=== PATIENT | female | born 1945 | race Caucasian/White ===

== ENCOUNTER 2017-06-24 14:32 | Inpatient (IN) | payer MEDICARE ==
[~2017-06-24] VITALS: Ht 157.5 cm; Wt 76.5 kg
[2017-06-24] VITALS (7 sets, daily range): BP systolic 169–189; BP diastolic 73–84; PULSE 80–83; RESP 12–14; TEMP 98.1–98.9; O2SAT 97–100
[2017-06-24] MEDS ORDERED: PROPOFOL 1000 MG/100 ML INJ 100 ML IV PRN (16:02)
[2017-06-24] MEDS ORDERED: POTASSIUM CHLORIDE 25 MEQ EFFERVESCENT TAB PO PRN (16:15)
[2017-06-24] MEDS ORDERED: SODIUM PHOSPHATE INJ 30 MMOL in SODIUM CHLOR 0.9% 250 ML INJ 240 ML IV PRN (16:15)
[2017-06-24] MEDS ORDERED: RESP: ALBUTEROL 2.5 MG/IPRATROPIUM 0.5 MG NEB (PRN) INH (16:15)
[2017-06-24] MEDS ORDERED: POTASSIUM PHOSPHATE INJ 30 MMOL in SODIUM CHLOR 0.9% 250 ML INJ 250 ML IV PRN (16:15)
[2017-06-24] MEDS ORDERED: POTASSIUM CHLOR 20 MEQ PREMIX 100 ML IV PRN ×2 (16:15)
[2017-06-24] MEDS ORDERED: MISCELLANEOUS NURSING INFORMATION XX SCH (16:15)
[2017-06-24] MEDS ORDERED: POTASSIUM CHLOR 40 MEQ PREMIX 100 ML IV PRN (16:15)
[2017-06-24] MEDS ORDERED: MAGNESIUM OXIDE 400 MG TAB PO PRN (16:15)
[2017-06-24] MEDS: RESP: ALBUTEROL 2.5 MG/IPRATROPIUM 0.5 MG NEB (SCH) NEB ×2 (16:15→20:39)
[2017-06-24] MEDS ORDERED: CHLORHEXIDINE GLUCONATE 2 % 1 PACK (2 CLOTHS) TOP PRN (16:15)
[2017-06-24] MEDS ORDERED: POTASSIUM PHOSPHATE MONOBASIC 500 MG TAB PO PRN (16:15)
[2017-06-24] MEDS ORDERED: MAGNESIUM SULFATE INJ 4 GM in SODIUM CHLORIDE 0.9% INJ 92 ML IV PRN (16:15)
[2017-06-24] MEDS ORDERED: POTASSIUM PHOSPHATE MONOBASIC 500 MG TAB PO/TUBE PRN (16:15)
[2017-06-24] MEDS ORDERED: MAGNESIUM SULFATE INJ 2 GM in SODIUM CHLORIDE 0.9% INJ 96 ML IV PRN (16:15)
[2017-06-24] MEDS ORDERED: SODIUM CHLORIDE 0.9% FLUSH 10 ML FLUSH IV FLUSH PRN (16:15)
[2017-06-24] MEDS ORDERED: GLUCAGON 1 MG/ML VIAL OTHER PRN (16:45)
[2017-06-24] MEDS ORDERED: DEXTROSE 50% IN WATER 50 ML VIAL(D50) IV PUSH PRN (16:45)
[2017-06-24] MEDS: SODIUM CHLOR 0.9% 1000 ML INJ 1,000 ML IV SCH (17:00)
--- NOTE | 2017-06-24 17:19 | RADRPT ---
EXAM DATE/TIME: 06/24/2017 16:35 [facility] COMPARISON: No previous studies available for comparison. EXTERNAL COMPARISON : INDICATIONS : E-T tube placement on a patient transfered here from another out [facility]. MEDICAL HISTORY : UNKNOWN SURGICAL HISTORY : UNKNOWN ENCOUNTER: Initial ACUITY: 1 day PAIN SCORE: Non-responsive. LOCATION: Bilateral chest FINDINGS: Mild infiltrate and probable small effusion seen at the left lung base. Right lung reasonably clear. No pneumothorax. Endotracheal tube tip is approximately 3.8 cm above the mahnaz. There is a nasogastric tube coursing into the stomach. The nasogastric tube deviates considerably to the left in the lower chest, nonspeci fic but a hiatal hernia would be in the differential. Heart size upper limits of normal. CONCLUSION: 1. Consolidation and small effusion at the left lung base. 2. Appropriate position of the endotracheal tube. 3. Nasogastric tube courses into the stomach. It deviates to the left in the lower chest. Please see above. Demarcus Thurston MD on June 24, 2017 at 17:16 Board Certified Radiologist. This report was verified electronically.
[2017-06-24] MEDS: INSULIN ASPART SUPPLEMENTAL SCALE SQ SCH (17:28)
--- NOTE | 2017-06-24 17:34 | HHI.HP ---
HPI Service Critical Care Medicine Primary Care Physician Unknown Admission Diagnosis Diagnosis: Chief Complaint: Nausea vomiting Travel History International Travel<30 Days: No Contact w/Intl Traveler <30 Da: No Traveled to Known Affected Are: No History of Present Illness 71-year-old female with a past medical history significant for COPD, GERD, gastric ulcer, nephrolithiasis who presented to [facility] on 2016 with severe epigastric pain nausea vomiting and coffee-ground emesis which started a day prior to her presentation. Patient continued to have significant nausea vomiting following admission. She was evaluated by GI. CT chest was negative for PE. CT abdomen pelvis revealed large hiatal hernia with hyperdense mass in the left kidney measuring 2.5 cm at the mid pole, diverticulosis without evidence of diverticulitis, umbilical hernia, normal- appearing liver spleen and gallbladder. Patient was evaluated by cardiology and GI. She had a 2-D echo which was reported as normal LV systolic function with some diastolic dysfunction. Patient underwent EGD which per discussion with critical care physician at [facility] revealed stomach full of food with gastritis and suspected gastric outlet obstruction. Patient was intubated electively during endoscopy. Since then she has been kept sedated, orally intubated on mechanical ventilation in the ICU. Her UA sent on admission at the outside hospital revealed UTI and she is growing Klebsiella as reported on her urine cultures. She was started on Levaquin for the UTI. Patient reportedly was doing okay on C Pap trials this morning. She was seen by the local surgeon at [facility] however he felt the patient needed to be transferred to [facility] and discussed the case with Dr. Wyatt aleman on 06/23 and patient was subsequently accepted for admission to critical care medicine service for further surgical evaluation following her arrival. I evaluated the patient immediately on arrival to the ICU on 06/24 around 4 PM. At that time she was sedated with propofol, orally intubated on mechanical ventilation. History was obtained by reviewing records and discussion with critical care physician at [facility]. Review of Systems ROS Limitations: Intubated Past Family Social History Allergies: Coded Allergies: Penicillins (Unverified Allergy, Unknown, 06/24/17) aspirin (Unverified Allergy, Unknown, 06/24/17) Past Medical History Gastroesophageal reflux disease, rectal cancer in 2004, gastric ulcer, hypertension, hyperlipidemia, depression, COPD, nephrolithiasis. Last colonoscopy in 2011 which revealed ischemic colitis. Past Surgical History To be clarified Reported Medications Medications at home: WelChol, [place], Prilosec, Paxil, Ambien, Apresoline, by systolic, Valsartan/HCTZ Active Ordered Medications Propofol, amlodipine, hydralazine 25 mg twice a day, Protonix 20 mg IV twice a day, Zofran when necessary, morphine, Ativan when necessary, normal saline 125 cc per hour Family History Noncontributory at this time Social History No history of smoking or alcohol abuse any other drug abuse. Physical Exam Vital Signs Vital Signs Date Time Temp Pulse Resp B/P (MAP) Pulse Ox O2 Delivery O2 Flow Rate FiO2 06/24/17 15:53 97 50 Physical Exam HEENT/ Neuro: Sedated, orally intubated, Pallor present, no icterus, tongue/ mucosa moist Neck: No JVD Chest/Pulm: on mech vent, good air entry bilaterally, no wheezing or crackles CVS: S1-S2 regular, no murmur GI/abdomen: soft, nontender, bowel sounds sluggish. Ventral hernia noted in epigastric region. No organomegaly appreciated. Extremities: warm bilaterally, no edema Laboratory All labs reviewed from outside hospital. 06/21 WBC 10.4, hemoglobin 13.2, hematocrit 40.1, platelets 351. Sodium 139, potassium 3.8, chloride 96, bicarbonate 27, BUN 21, creatinine 0.86, glucose 130 06/24: WBC 8.7, hemoglobin 8.6, hematocrit 26.8, platelets 216. Sodium 140, potassium 3.6, chloride 107, bicarbonate 23, BUN 11, creatinine 0.45, glucose 97 , phosphorus 3.2, magnesium 1.9 06/22: Urine culture growing Klebsiella Imaging Reviewed results of imaging studies from outside hospital: CT chest negative for PE, large hiatal hernia CT abdomen pelvis: Hiatal hernia, diverticulosis, left renal mass Abdominal ultrasound: Left renal cyst Caprini VTE Risk Assessment Caprini VTE Risk Assessment: Mod/High Risk (score >= 2) VTE Pharm Contraindication: Hemorrhage Caprini Risk Assessment Model Point Value = 1 Point Value = 2 Point Value = 3 Point Value = 5 Age 41-60 Minor surgery BMI > 25 kg/m2 Swollen legs Varicose veins or History of unexplained or recurrent spontaneous Oral contraceptives or hormone replacement Sepsis (< 1 month) Serious lung disease, including pneumonia (< 1 month) Abnormal pulmonary function Acute myocardial infarction Congestive heart failure (< 1 month) History of inflammatory bowel disease Medical patient at bed rest Age 61-74 Arthroscopic surgery Major open surgery (> 45 min) Laparoscopic surgery (> 45 min) Malignancy Confined to bed (> 72 hours) Immobilizing plaster cast Central venous access Age >= 75 History of VTE Family history of VTE Factor V Leiden Prothrombin [id number] Lupus anticoagulant Anticardiolipin antibodies Elevated serum homocysteine Heparin-induced thrombocytopenia Other congenital or acquired thrombophilia Stroke (< 1 month) Elective arthroplasty Hip, pelvis, or leg fracture Acute spinal cord injury (< 1 month) Prophylaxis Regimen Total Risk Factor Score Risk Level Prophylaxis Regimen 0-1 Low Early ambulation 2 Moderate Order ONE of the following: *Sequential Compression Device (SCD) *Heparin 5000 units SQ BID 3-4 Higher Order ONE of the following medications: *Heparin 5000 units SQ TID *Enoxaparin/Lovenox 40 mg SQ daily (WT < 150 kg, CrCl > 30 mL/min) *Enoxaparin/Lovenox 30 mg SQ daily (WT < 150 kg, CrCl > 10-29 mL/min) *Enoxaparin/Lovenox 30 mg SQ BID (WT < 150 kg, CrCl > 30 mL/min) AND/OR *Sequential Compression Device (SCD) 5 or more Highest Order ONE of the following medications: *Heparin 5000 units SQ TID (Preferred with Epidurals) *Enoxaparin/Lovenox 40 mg SQ daily (WT < 150 kg, CrCl > 30 mL/min) *Enoxaparin/Lovenox 30 mg SQ daily (WT < 150 kg, CrCl > 10-29 mL/min) *Enoxaparin/Lovenox 30 mg SQ BID (WT < 150 kg, CrCl > 30 mL/min) AND *Sequential Compression Device (SCD) Assessment and Plan Assessment and Plan 71-year-old female with: Hematemesis Suspected gastric outlet obstruction Anemia COPD GERD Morbid obesity Hypertension Plan: Neuro: Sedation with propofol, fentanyl when necessary. Daily sedation vacation. Cardiovascular: IV hydration, watch for hypotension. Labetalol when necessary for systolic blood pressure greater than 160 mmHg, add lopressor 2.5 mg IV every 6 hourly while NPO as patient is on a beta scott at home. 2-D echo report from outside hospital states normal LV systolic function with minimal diastolic dysfunction. Pulmonary: Continue bronchodilators, vent bundle, mechanical ventilation. We will initiate C Pap trials in a.m. to decide extubation. GI/liver: Continue NG suction, nothing by mouth currently. General surgery and GI consulted. Discussed the case with Dr. Carpio including revieing imaging studies from [facility]. He recommends getting upper GI series and GI evaluation with endoscopy for further evaluation to decide management. Renal/: IV hydration, strict intake output, monitor and replete electrolytes, follow BUN/creatinine. Left renal cyst on renal ultrasound from outside hospital noted. ID: Continue Levaquin for Klebsiella UTI noted from outside hospital. Repeat UA and urine cultures. Patient has a Tellez catheter in place from outside hospital. Endocrine: SSI for glycemic control as needed. Heme: Follow CBC. Minimize lab draws as patient is a [employer]. Prophylaxis: On Protonix twice a day which will be continued. SCDs. No heparin or Lovenox in view of presentation with hematemesis till cleared by GI and general surgery. Condition critical. Transferred on critical care excluding procedures 70 minutes Urbano Boss MD Jun 24, 2017 17:34
[2017-06-24] MEDS ORDERED: MIDAZOLAM 100 MG/100 ML INJ 100 ML IV PRN (17:35)
[2017-06-24] MEDS ORDERED: MIDAZOLAM HCL 2 MG/2 ML VIAL IV PUSH ONE (17:45)
[2017-06-24] MEDS ORDERED: MIDAZOLAM HCL 5 MG/ML VIAL (1 ML) ONE (17:46)
[2017-06-24] MEDS: LABETALOL HCL 100 MG/20 ML VIAL IV PUSH PRN (18:00)
[2017-06-24 18:48] LABS: BACTERIA, URINE RARE /hpf; BLOOD, URINE MOD (NEG); GLUCOSE,URINE NEG (NEG); KETONE, URINE NEG (NEG); MUCUS URINE FEW /lpf (OCC); NITRITE,URINE NEG (NEG); PH, URINE 5.5 (5.0-8.5); SQUAMOUS EPITHELIAL CELL URINE 1 /hpf (0-5); URINE COLOR YELLOW (YELLW/STRAW)
--- NOTE | 2017-06-24 18:55 | MB ---
cc: ROXANNA GONZALES DATE OF CONSULTATION 06/24/[address] Karyn MD REASON FOR CONSULTATION Large hiatal hernia. HISTORY OF PRESENT ILLNESS The patient is a 71-year-old female with a past medical history of COPD and multiple previous malignancies including rectal cancer who presented to outside facility with chest pain. This was the [facility] on 06/21/2017 and she was found to have a hiatal hernia and some coffee-ground emesis concerning for upper GI bleeding. The patient underwent a workup and during this process found to have a large hiatal hernia and upper endoscopy was found to be difficult due to some tortuosity of the hernia. An NG tube was able to be placed and there was no ischemia noted. However, there was some gastritis. The patient at this point in time was apparently evaluated by surgery according to report and felt that she needed a tertiary center for repair of large gastric volvulus and possible obstruction. So she was transferred to this facility. Also the patient underwent intubation for "airway protection" due to the patient's concern for aspiration risk due to possibility of gastric outlet obstruction. The patient arrived in stable condition, sedated on the ventilator in the intensive care unit. General surgery was asked to see the patient and Dr. Koo and Dr. Nick accepted the patient to consider possible surgery. The history is obtained from the chart as the patient is intubated and sedated. REVIEW OF SYSTEMS The patient intubated unable to obtain. PAST MEDICAL HISTORY 1. Gastroesophageal reflux disease. 2. Rectal cancer. 3. Gastric ulcers. 4. Hypertension. 5. Hyperlipidemia. 6. Depression. 7. Chronic obstructive pulmonary disease. 8. Nephrolithiasis. MEDICATIONS Home medications: 1. Welchol. 2. [place]. 3. Prilosec. 4. Paxil. 5. Ambien. FAMILY HISTORY Noncontributory. SOCIAL HISTORY No history of smoking, tobacco use per the chart. PHYSICAL EXAMINATION VITAL SIGNS: Within normal limits. Normotensive. Heart rate within normal limits. Saturation 99% on the ventilator. GENERAL: The patient is intubated and sedated. GCS of 5 on the ventilator. HEENT: Head is normocephalic, atraumatic. Pupils round and reactive. LUNGS: Breath sounds present bilaterally. CARDIOVASCULAR: Heart is regular rate and rhythm. ABDOMEN: Soft, nondistended, nontender to palpation. No peritonitis or rebound tenderness. EXTREMITIES: Mild trace edema. IMAGING Outside imaging was reviewed. A CT the chest shows large hiatal hernia with no free fluid or free air in the chest or abdomen. ASSESSMENT/PLAN The patient is a 71-year-old female with large hiatal hernia, possible gastritis with history of possible coffee ground emesis. I feel the patient is unlikely to have any acute volvulus or ischemia at this time but might have worsening of her chronic or subacute hiatal hernia. I do agree with continued workup including a GI consultation and upper GI series to further evaluate the patient's hiatal hernia. I will discuss the case with Dr. Sandoval yang and hiatal hernia repair and he will evaluate the patient in the next 24 hours and discuss further options at that time. Thank you very much for this consultation. We will follow along with the patient. Roxanna Gonzales MD AWSonja/KK /6:21 PM /6:39 PM [email or web address]
[2017-06-24] MEDS: PANTOPRAZOLE SODIUM 40 MG VIAL IV SCH (20:51)
[2017-06-24] MEDS: METOPROLOL TARTRATE 5 MG/5 ML VIAL IV PUSH SCH (20:51)
[2017-06-24] MEDS: SODIUM CHLORIDE 0.9% FLUSH 10 ML FLUSH IV FLUSH SCH (20:51)
[2017-06-24] MEDS: PROPOFOL 1000 MG/100 ML IV PRN (22:29)
--- NOTE | 2017-06-24 23:22 | RADRPT ---
EXAM DATE/TIME: 06/24/2017 18:41 [facility] COMPARISON: No previous studies available for comparison. INDICATIONS : Possible gastric outlet obstruction FLUORO TIME: 1.3 minutes IMAGE COUNT: 13 CONTRAST: Liquid E-Z Paque Barium Sulfate (60% w/v, 41% w/w) IMAGING TIME(S): 45 min, 2 hrs MEDICAL HISTORY: Unknown SURGICAL HISTORY : Unknown ENCOUNTER: Initial ACUITY: 1 day PAIN SCORE: Non-responsive. LOCATION: Abdomen FINDINGS: Initial ticket worker film demonstrates a normal bowel gas pattern without obstruction or ileus. A nasogastr ic tube has its tip in the stomach. Degenerative changes and scoliosis of the lumbar spine are noted . A limited single contrast barium examination was performed to evaluate for gastric outlet obstruct ion. Contrast flows freely through the stomach into the duodenum without obstruction or stricture. Small bowel study demonstrates normal transit time and no small bowel dilatation. CONCLUSION: 1. No evidence of gastric outlet obstruction. 2. No evidence of small bowel obstruction. Tim Rivera MD on June 24, 2017 at 22:29 Board Certified Radiologist. This report was verified electronically.
[2017-06-25] VITALS (19 sets, daily range): BP systolic 145–174; BP diastolic 65–79; PULSE 72–95; RESP 11–28; TEMP 98–99.5; O2SAT 94–100
[2017-06-25] MEDS: METOPROLOL TARTRATE 5 MG/5 ML VIAL IV PUSH SCH ×5 (00:40→23:24)
[2017-06-25] MEDS: PROPOFOL 1000 MG/100 ML IV PRN ×2 (02:47→06:52)
[2017-06-25] MEDS ORDERED: SODIUM CHLOR 0.9% 1000 ML INJ 2,000 ML IV ONE (03:15)
[2017-06-25] MEDS: RESP: ALBUTEROL 2.5 MG/IPRATROPIUM 0.5 MG NEB (SCH) NEB ×4 (03:25→21:29)
[2017-06-25] MEDS: INSULIN ASPART SUPPLEMENTAL SCALE SQ SCH ×5 (05:46→23:32)
[2017-06-25 05:47] LABS: AUTOMATED NEUTROPHIL # 7.8 TH/MM3 (1.8-7.7); BASOPHIL # 0.1 TH/MM3 (0-0.2); BASOPHIL % 0.6 % (0.0-2.0); EOSINOPHIL # 0.4 TH/MM3 (0-0.4); EOSINOPHIL % 3.7 % (0.0-4.0); HEMATOCRIT 27.6 % (35.0-46.0); HEMO FLAGS DIFF FINAL; LYMPH % 9.3 % (9.0-44.0); LYMPHOCYTE # 0.9 TH/MM3 (1.0-4.8); MEAN CELL VOLUME 92.2 FL (80.0-100.0); MEAN CORPUSCULAR HEMOGLOBIN 30.6 PG (27.0-34.0); MEAN CORPUSCULAR HGB CONC 33.2 % (32.0-36.0); MONO % 9.4 % (0.0-8.0); PLATELET COUNT 219 TH/MM3 (150-450); RED CELL DISTRIBUTION WIDTH 15.3 % (11.6-17.2); WHITE BLOOD COUNT 10.2 TH/MM3 (4.0-11.0)
[2017-06-25] MEDS: SODIUM CHLOR 0.9% 1000 ML INJ 1,000 ML IV SCH ×2 (05:47→19:49)
[2017-06-25 06:11] LABS: ANION GAP 7 MEQ/L (5-15); AST (GOT) 14 U/L (15-37); BICARBONATE 23.9 MEQ/L (21.0-32.0); BLOOD UREA NITROGEN 6 MG/DL (7-18); CHLORIDE 110 MEQ/L (98-107); GLOMERULAR FILTRATION RATE 161 ML/MIN (>89); POTASSIUM 3.5 MEQ/L (3.5-5.1); SODIUM (NA) 141 MEQ/L (136-145)
[2017-06-25 06:12] LABS: ALT (GPT) 17 U/L (10-53)
[2017-06-25 06:14] LABS: ALKALINE PHOSPHATASE 63 U/L (45-117); TOTAL BILIRUBIN ADULT 0.3 MG/DL (0.2-1.0)
--- NOTE | 2017-06-25 07:45 | HHI.PR ---
Subjective Subjective Notes intubated, sedated Objective Vitals/I&O Vital Signs Date Time Temp Pulse Resp B/P (MAP) Pulse Ox O2 Delivery O2 Flow Rate FiO2 06/25/17 07:33 99 40 06/25/17 06:00 72 06/25/17 04:00 99.4 12 174/79 (110) 06/24/17 19:00 Mechanical Ventilator Labs Laboratory Tests Test 06/24/17 16:55 06/25/17 05:15 Urine Color YELLOW Urine Turbidity HAZY Urine pH 5.5 Urine Specific [place] 1.029 Urine Protein 30 Urine Glucose (UA) NEG Urine Ketones NEG Urine Occult Blood MOD Urine Nitrite NEG Urine Bilirubin NEG Urine Urobilinogen LESS THAN 2.0 Urine Leukocyte Esterase SMALL Urine RBC 136 Urine WBC 6 Urine Squamous Epithelial Cells 1 Urine Amorphous Sediment RARE Urine Bacteria RARE Urine Mucus FEW White Blood Count 10.2 Red Blood Count 3.00 Hemoglobin 9.2 Hematocrit 27.6 Mean Corpuscular Volume 92.2 Mean Corpuscular Hemoglobin 30.6 Mean Corpuscular Hemoglobin Concent 33.2 Red Cell Distribution Width 15.3 Platelet Count 219 Mean Platelet Volume 7.9 Neutrophils (%) (Auto) 77.0 Lymphocytes (%) (Auto) 9.3 Monocytes (%) (Auto) 9.4 Eosinophils (%) (Auto) 3.7 Basophils (%) (Auto) 0.6 Neutrophils # (Auto) 7.8 Lymphocytes # (Auto) 0.9 Monocytes # (Auto) 1.0 Eosinophils # (Auto) 0.4 Basophils # (Auto) 0.1 CBC Comment DIFF FINAL Differential Comment Blood Urea Nitrogen 6 Creatinine 0.39 Random Glucose 92 Total Protein 4.8 Albumin 2.1 Calcium Level 7.6 Alkaline Phosphatase 63 Aspartate Amino Transf (AST/SGOT) 14 Alanine Aminotransferase (ALT/SGPT) 17 Total Bilirubin 0.3 Sodium Level 141 Potassium Level 3.5 Chloride Level 110 Carbon Dioxide Level 23.9 Anion Gap 7 Estimat Glomerular Filtration Rate 161 Cardiovascular: Regular Lungs: Clear Abdomen: Non-distended, Non-tender, Other (reducible UH, ? low transverse incision) Extremities: Other (mildly edematous, bruising.) A/P Assessment and Plan Hiatal hernia with acute episode of intolerance to oral intake(?) UH. Will discuss with patient- if extubated- and family options for surgical treatment later today. D/W Dr Boss and bedside RN. Yordan Nick MD Jun 25, 2017 07:45
[2017-06-25] MEDS: SODIUM CHLORIDE 0.9% FLUSH 10 ML FLUSH IV FLUSH SCH ×2 (09:00→20:43)
[2017-06-25] MEDS: LEVOFLOXACIN 500 MG PREMIX INJ 100 ML IV SCH (09:20)
[2017-06-25] MEDS: PANTOPRAZOLE SODIUM 40 MG VIAL IV SCH ×2 (09:21→20:43)
--- NOTE | 2017-06-25 09:38 | HHI.CCPN ---
Subjective Remarks/Hospital Course 06/24: 71-year-old female with a past medical history significant for COPD, GERD , gastric ulcer, nephrolithiasis who presented to [facility] on 06/21 with severe epigastric pain nausea vomiting and coffee-ground emesis which started a day prior to her presentation. Patient continued to have significant nausea vomiting following admission. She was evaluated by GI. CT chest was negative for PE. CT abdomen pelvis revealed large hiatal hernia with hyperdense mass in the left kidney measuring 2.5 cm at the mid pole, diverticulosis without evidence of diverticulitis, umbilical hernia, normal- appearing liver spleen and gallbladder. Patient was evaluated by cardiology and GI. She had a 2-D echo which was reported as normal LV systolic function with some diastolic dysfunction. Patient underwent EGD which per discussion with critical care physician at [facility] revealed stomach full of food with gastritis and suspected gastric outlet obstruction. Patient was intubated electively during endoscopy. Since then she has been kept sedated, orally intubated on mechanical ventilation in the ICU. Her UA sent on admission at the outside hospital revealed UTI and she is growing Klebsiella as reported on her urine cultures. She was started on Levaquin for the UTI. Patient reportedly was doing okay on C Pap trials this morning. She was seen by the local surgeon at [facility] however he felt the patient needed to be transferred to [facility] and discussed the case with Dr. Wyatt aleman on 06/23 and patient was subsequently accepted for admission to critical care medicine service for further surgical evaluation following her arrival. I evaluated the patient immediately on arrival to the ICU on 06/24 around 4 PM. At that time she was sedated with propofol, orally intubated on mechanical ventilation. History was obtained by reviewing records and discussion with critical care physician at [facility]. 06/25: Remains sedated, orally intubated on mechanical ventilation. Objective Vital Signs Date Time Temp Pulse Resp B/P (MAP) Pulse Ox O2 Delivery O2 Flow Rate FiO2 06/25/17 07:33 99 40 06/25/17 07:00 Mechanical Ventilator 06/25/17 06:00 72 06/25/17 04:00 99.4 12 174/79 (110) Intake and Output 06/25/17 06/25/17 06/25/17 07:59 15:59 23:59 Intake Total 2554 ml Output Total 675 ml Balance 1879 ml Result Diagram: 06/25/17 0515 06/25/17 0515 Imaging Reviewed results of imaging studies from outside hospital: CT chest negative for PE, large hiatal hernia CT abdomen pelvis: Hiatal hernia, diverticulosis, left renal mass Abdominal ultrasound: Left renal cyst Last 24 hours Impressions Chest X-Ray 06/24/17 1602 Signed Impressions: Service Date/Time: Saturday, June 24, 2017 16:35 - CONCLUSION: 1. Consolidation and small effusion at the left lung base. 2. Appropriate position of the endotracheal tube. 3. Nasogastric tube courses into the stomach. It deviates to the left in the lower chest. Please see above. Demarcus Thurston MD Objective Remarks HEENT/ Neuro: Sedated, orally intubated, Pallor present, no icterus, tongue/ mucosa moist Neck: No JVD Chest/Pulm: on mech vent, good air entry bilaterally, no wheezing or crackles CVS: S1-S2 regular, no murmur GI/abdomen: soft, nontender, bowel sounds sluggish. Ventral hernia noted in epigastric region. No organomegaly appreciated. Extremities: warm bilaterally, no edema A/P Assessment and Plan 71-year-old female with: Hematemesis Suspected gastric outlet obstruction Anemia COPD GERD Morbid obesity Hypertension Plan: Neuro: Sedation with propofol, fentanyl when necessary. Daily sedation vacation. Cardiovascular: IV hydration, watch for hypotension. Labetalol when necessary for systolic blood pressure greater than 160 mmHg, lopressor 2.5 mg IV every 6 hourly while NPO as patient is on a beta scott at home. 2-D echo report from outside hospital states normal LV systolic function with minimal diastolic dysfunction. Pulmonary: Continue bronchodilators, vent bundle, mechanical ventilation. We will initiate C Pap trials in a.m. to decide extubation. GI/liver: Continue NG suction, nothing by mouth currently. General surgery and GI consulted. Discussed the case with Dr. Carpio including reviewing imaging studies from [facility]. Upper GI series with no evidence of gastric outlet obstruction. Awaiting GI evaluation with possible endoscopy for further evaluation to decide management. Renal/: IV hydration, strict intake output, monitor and replete electrolytes, follow BUN/creatinine. Left renal cyst on renal ultrasound from outside hospital noted. ID: Continue Levaquin for Klebsiella UTI noted from outside hospital. F/u UA and urine cultures. Patient has a Tellez catheter in place from outside hospital. Endocrine: SSI for glycemic control as needed. Heme: Follow CBC. Minimize lab draws as patient is a [employer]. Prophylaxis: On Protonix twice a day which will be continued. SCDs. No heparin or Lovenox in view of presentation with hematemesis till cleared by GI and general surgery. D/W Dr. Nick. Condition critical. Transferred on critical care excluding procedures 30 minutes Urbano Boss MD Jun 25, 2017 09:38
--- NOTE | 2017-06-25 10:31 | PD.CONS ---
HPI History of Present Illness This is a 71 year old female who was admitted [facility] on 06/21/17 with severe epigastric pain, nausea, vomiting with coffee ground emesis. CT abdomen pelvis revealed large hiatal hernia with hyperdense mass in the left kidney measuring 2.5 cm at the mid pole, diverticulosis without evidence of diverticulitis, umbilical hernia, normal-appearing liver spleen and gallbladder. Per the EMR, her EGD revealed stomach full of food with gastritis and suspected gastric outlet obstruction. She was intubated during the procedure electively. She was then evaluated by the surgical team, who transferred the patient to this facility for surgical evaluation. She is currently in the ICU, intubated, on mechanical ventilation. General surgery is following and an upper gi series was done (06/24/17) and revealed no evidence of gastric outlet obstruction, no evidence of small bowel obstruction. GI was consulted for further evaluation. She is currently lightly sedated. She has an NGT in place to LIWS- with minimal secretions- no evidence of active GI bleeding. The nurse reports that she has not had any active GI bleeding. She is on Protonix with BID dosing. She has a history of peptic ulcer disease and a hx of colon cancer- diagnosed in 2001 (s/p treatment with chemotherapy and radiation). Her last colonoscopy was last year. (Stephania John) [facility] Past Medical History GERD PUD Rectal/Colon cancer. EMR states rectal cancer 2004. Daughter states colon cancer in 2001 (s/p radiation, chemotherapy) HTN Hyperlipidemia Depression COPD Nephrolithiasis Ischemic colitis Past Surgical History Colonoscopy EGD Hysterectomy (Stephania John) Coded Allergies: Penicillins (Unverified Allergy, Unknown, 06/24/17) aspirin (Unverified Allergy, Unknown, 06/24/17) Medications Allergies Coded Allergies Type Severity Reaction Last Updated Verified Penicillins Allergy Unknown 06/24/17 No aspirin Allergy Unknown 06/24/17 No Family History One sister with brain cancer Another sister with head/neck cancer. Social History No tobacco, etoh, illicit drug use (Stephania John) Review of Systems ROS Unable to obtain (Stephania John) GI Exam Vitals I&O Vital Signs Date Time Temp Pulse Resp B/P (MAP) Pulse Ox O2 Delivery O2 Flow Rate FiO2 06/25/17 09:21 40 06/25/17 09:21 100 40 06/25/17 08:00 82 06/25/17 08:00 98.0 82 16 173/79 (110) 100 06/25/17 08:00 40 06/25/17 07:33 99 40 06/25/17 07:00 99 Mechanical Ventilator 40 06/25/17 06:00 72 06/25/17 05:34 98 40 06/25/17 04:00 99.4 78 12 174/79 (110) 99 06/25/17 04:00 79 06/25/17 04:00 40 06/25/17 02:44 99 40 06/25/17 02:00 78 06/25/17 00:00 40 06/25/17 00:00 78 06/25/17 00:00 99.5 80 12 147/67 (93) 99 06/24/17 22:00 82 06/24/17 20:40 99 40 06/24/17 20:00 40 06/24/17 20:00 98.9 80 12 170/74 (106) 98 06/24/17 20:00 80 06/24/17 19:20 100 100 06/24/17 19:00 100 Mechanical Ventilator 40 06/24/17 17:00 83 12 169/73 (105) 100 06/24/17 15:53 97 50 06/24/17 15:00 50 06/24/17 15:00 98.1 80 14 189/84 (119) 100 I/O 06/24/17 06/24/17 06/24/17 06/25/17 06/25/17 06/25/17 06:59 14:59 22:59 06:59 14:59 22:59 Intake Total 2554 ml Output Total 675 ml Balance 1879 ml Intake IV Total 2554 ml Output Urine Total 675 ml Imaging Last Impressions Chest X-Ray 06/24/17 1602 Signed Impressions: Service Date/Time: Saturday, June 24, 2017 16:35 - CONCLUSION: 1. Consolidation and small effusion at the left lung base. 2. Appropriate position of the endotracheal tube. 3. Nasogastric tube courses into the stomach. It deviates to the left in the lower chest. Please see above. Demarcus Thurston MD Laboratory Test 8/27/17 16:55 06/25/17 05:15 Urine Color YELLOW Urine Turbidity HAZY Urine pH 5.5 Urine Specific [place] 1.029 Urine Protein 30 mg/dL Urine Glucose (UA) NEG mg/dL Urine Ketones NEG mg/dL Urine Occult Blood MOD Urine Nitrite NEG Urine Bilirubin NEG Urine Urobilinogen LESS THAN 2.0 MG/DL Urine Leukocyte Esterase SMALL Urine RBC 136 /hpf Urine WBC 6 /hpf Urine Squamous Epithelial Cells 1 /hpf Urine Amorphous Sediment RARE Urine Bacteria RARE /hpf Urine Mucus FEW /lpf White Blood Count 10.2 TH/MM3 Red Blood Count 3.00 MIL/MM3 Hemoglobin 9.2 GM/DL Hematocrit 27.6 % Mean Corpuscular Volume 92.2 FL Mean Corpuscular Hemoglobin 30.6 PG Mean Corpuscular Hemoglobin Concent 33.2 % Red Cell Distribution Width 15.3 % Platelet Count 219 TH/MM3 Mean Platelet Volume 7.9 FL Neutrophils (%) (Auto) 77.0 % Lymphocytes (%) (Auto) 9.3 % Monocytes (%) (Auto) 9.4 % Eosinophils (%) (Auto) 3.7 % Basophils (%) (Auto) 0.6 % Neutrophils # (Auto) 7.8 TH/MM3 Lymphocytes # (Auto) 0.9 TH/MM3 Monocytes # (Auto) 1.0 TH/MM3 Eosinophils # (Auto) 0.4 TH/MM3 Basophils # (Auto) 0.1 TH/MM3 CBC Comment DIFF FINAL Differential Comment Blood Urea Nitrogen 6 MG/DL Creatinine 0.39 MG/DL Random Glucose 92 MG/DL Total Protein 4.8 GM/DL Albumin 2.1 GM/DL Calcium Level 7.6 MG/DL Alkaline Phosphatase 63 U/L Aspartate Amino Transf (AST/SGOT) 14 U/L Alanine Aminotransferase (ALT/SGPT) 17 U/L Total Bilirubin 0.3 MG/DL Sodium Level 141 MEQ/L Potassium Level 3.5 MEQ/L Chloride Level 110 MEQ/L Carbon Dioxide Level 23.9 MEQ/L Anion Gap 7 MEQ/L Estimat Glomerular Filtration Rate 161 ML/MIN Physical Examination HEENT: Normocephalic; atraumatic; no jaundice. CHEST: Resp even/unlabored, OETT to vent. CARDIAC: RRR ABDOMEN: Soft, nondistended, nontender; no hepatosplenomegaly; bowel sounds are present in all four quadrants. NGT to LIWS- minimal secretions EXTREMITIES: BUE edema. SKIN: Multiple ecchymotic areas [employer]: Sedated on vent. JOLLEY (Stephania John) Assessment and Plan Plan ASSESSMENT: - Recent upper GIB, coffee ground emesis. Pt was admitted to [facility] on 06/21 for n/v/coffee ground emesis, abdominal pain. Per the EMR, her EGD revealed stomach full of food with gastritis and suspected gastric outlet obstruction. Per nurse, has not had any GI bleeding since arrival to this facility. Protonix with BID dosing. - Large HH with N/V/pain with concern for gastric outlet obstruction. CT abdomen pelvis revealed large hiatal hernia with hyperdense mass in the left kidney measuring 2.5 cm at the mid pole, diverticulosis without evidence of diverticulitis, umbilical hernia, normal-appearing liver spleen and gallbladder. Concern for gastric outlet obstruction on recent EGD. She was evaluated by GS at [place] and transferred to this facility for surgical evaluation. S/P Upper GI series (06/24/17) and revealed no evidence of gastric outlet obstruction, no evidence of small bowel obstruction. Further recommendations per GS. - Anemia, blood loss. HH 9.2/.6. No active bleeding. - Respiratory failure/COPD. Intubated, on CPAP per CCM. - GERD, Hx PUD. PPI with BID dosing. - HTN, Hyperlipidemia, Depression - Hx rectal/colon cancer. Daughter states she had colon cancer in 2001- s/p radiation/chemotherapy, last colonoscopy last year. PLAN: - NPO - NGT to LIWS - Protonix with BID dosing - Monitor HH - Transfuse as necessary - GS following - Supportive care - No plans for repeat EGD at this time, unless there is active bleeding. D/W Dr. Nick, Dr. Jimenez - Further recommendations to follow based on results of above - Pt seen and examined by Dr. Jimenez and myself and this note is written on his behalf (Stephania John) Physician Comments Seen and examined, plan as above, no evidence of active GI bleeding now. Will follow up with you. Further recommendations to follow. (Willam Jimenez MD) Stephania John Jun 25, 2017 10:31 Willam Jimenez MD Jun 25, 2017 12:47
--- NOTE | 2017-06-25 14:25 | EKG ---
Date Performed: 06/24/2017 Time Performed: 17:22:08 PTAGE: 71 years EKG: Sinus rhythm Anterior T wave changes are nonspecific Low QRS voltages in precordial leads Borderline ECG NO PREVIOUS TRACING DOCTOR: Maico Lynch Interpretating Date/Time 06/25/2017 14:24:17
[2017-06-25] MEDS ORDERED: FUROSEMIDE 20 MG/2 ML VIAL IV PUSH ONE (16:30)
[2017-06-25] MEDS ORDERED: DEXTROSE 50% IN WATER 50 ML SYRINGE IV PUSH PRN (17:30)
--- NOTE | 2017-06-25 18:05 | HHI.PR ---
Subjective Subjective Notes Pt now extubated, but disoriented. c/o asthma attack, asking for Brigitte her daughter. Objective Vitals/I&O Vital Signs Date Time Temp Pulse Resp B/P (MAP) Pulse Ox O2 Delivery O2 Flow Rate FiO2 06/25/17 16:00 99.0 95 11 145/65 (91) 100 06/25/17 14:10 Nasal Cannula 4.00 06/25/17 12:06 40 Labs Laboratory Tests Test 06/25/17 05:15 White Blood Count 10.2 Red Blood Count 3.00 Hemoglobin 9.2 Hematocrit 27.6 Mean Corpuscular Volume 92.2 Mean Corpuscular Hemoglobin 30.6 Mean Corpuscular Hemoglobin Concent 33.2 Red Cell Distribution Width 15.3 Platelet Count 219 Mean Platelet Volume 7.9 Neutrophils (%) (Auto) 77.0 Lymphocytes (%) (Auto) 9.3 Monocytes (%) (Auto) 9.4 Eosinophils (%) (Auto) 3.7 Basophils (%) (Auto) 0.6 Neutrophils # (Auto) 7.8 Lymphocytes # (Auto) 0.9 Monocytes # (Auto) 1.0 Eosinophils # (Auto) 0.4 Basophils # (Auto) 0.1 CBC Comment DIFF FINAL Differential Comment Blood Urea Nitrogen 6 Creatinine 0.39 Random Glucose 92 Total Protein 4.8 Albumin 2.1 Calcium Level 7.6 Alkaline Phosphatase 63 Aspartate Amino Transf (AST/SGOT) 14 Alanine Aminotransferase (ALT/SGPT) 17 Total Bilirubin 0.3 Sodium Level 141 Potassium Level 3.5 Chloride Level 110 Carbon Dioxide Level 23.9 Anion Gap 7 Estimat Glomerular Filtration Rate 161 Abdomen: Other (small michelle c/w radiation to pelvis, pt says she had colon cancer and colon resection surgery but I can not see any scars.) A/P Assessment and Plan Hiatal hernia with acute episode of intolerance to oral intake(?) UH. Pt disoriented. D/W and daughter and family friend. UGI shows hiatal hernia with some of stomach in chest. there is no evidence of gastric outlet obstruction and quick transit of contrast into colon. The pts daughter describes a h/o early satiety and prior to going to hospital symptoms of chest pressure and discomfort and LUE pain and tingling. Her BP was 240/140 and she went urgently to [facility]. She was vomiting bloody fluid and EGD showed gastritis and ? outlet obstruction. I told family ideally operative repair of her HH would be under more elective situation than emergently AND right now there is no indication for emergent surgery. They understand and agree. I D/W Dr Boss. We will follow along. Hopefully she can become more oriented and get back to eating and be done on a more elective basis. Yordan Nick MD Jun 25, 2017 18:05
[2017-06-25] MEDS ORDERED: HYDR-3516 PO (18:44)
[2017-06-25] MEDS ORDERED: ATEN50TA PO (18:44)
[2017-06-25] MEDS ORDERED: PARO30TA2 PO (18:44)
[2017-06-25] MEDS ORDERED: LOSA100T PO (18:44)
[2017-06-25] MEDS ORDERED: ZOLP5TAB3 PO (18:44)
[2017-06-25] MEDS ORDERED: HYDR25TA5 PO (18:44)
[2017-06-25] MEDS ORDERED: SUCR1TAB PO (18:44)
[2017-06-25] MEDS: DEXMEDETOMIDINE INJ 200 MCG in SODIUM CHLORIDE 0.9% INJ 50 ML IV PRN ×2 (20:43→23:25)
[2017-06-26] VITALS (16 sets, daily range): BP systolic 135–174; BP diastolic 59–79; PULSE 69–98; RESP 15–26; TEMP 98.1–98.7; O2SAT 94–100
[2017-06-26] MEDS ORDERED: DEXMEDETOMIDINE INJ 1,000 MCG in SODIUM CHLOR 0.9% 250 ML INJ 240 ML IV PRN (01:30)
[2017-06-26] MEDS: RESP: ALBUTEROL 2.5 MG/IPRATROPIUM 0.5 MG NEB (SCH) NEB ×4 (03:06→19:11)
[2017-06-26 05:03] LABS: AUTOMATED NEUTROPHIL # 5.4 TH/MM3 (1.8-7.7); BASOPHIL % 0.7 % (0.0-2.0); EOSINOPHIL # 0.3 TH/MM3 (0-0.4); EOSINOPHIL % 4.6 % (0.0-4.0); HEMATOCRIT 26.2 % (35.0-46.0); LYMPH % 11.2 % (9.0-44.0); LYMPHOCYTE # 0.8 TH/MM3 (1.0-4.8); MEAN CELL VOLUME 90.6 FL (80.0-100.0); MEAN CORPUSCULAR HEMOGLOBIN 29.9 PG (27.0-34.0); MONO % 10.8 % (0.0-8.0); NEUT % 72.7 % (16.0-70.0); PLATELET COUNT 238 TH/MM3 (150-450); RED BLOOD COUNT 2.89 MIL/MM3 (4.00-5.30); RED CELL DISTRIBUTION WIDTH 14.8 % (11.6-17.2); WHITE BLOOD COUNT 7.5 TH/MM3 (4.0-11.0)
[2017-06-26 05:14] LABS: HEMO FLAGS AUTO DIFF
[2017-06-26] MEDS: METOPROLOL TARTRATE 5 MG/5 ML VIAL IV PUSH SCH ×4 (05:19→23:30)
[2017-06-26] MEDS: INSULIN ASPART SUPPLEMENTAL SCALE SQ SCH ×4 (05:37→23:58)
[2017-06-26 06:27] LABS: BANDS 2 % (0-6); EOSINOPHILS 3 % (0-4); NEUTROPHIL # MANUAL DIFF 5.9 TH/MM3 (1.8-7.7); PLATELET ESTIMATE SMEAR NORMAL (NORMAL); PLATELET MORPHOLOGY NORMAL (NORMAL); POLYS (SEG NEUTROPHILS) 74 % (16-70); PROMYELOCYTES 2 % (0-0); SCAN/DIFF FINAL DIFF MANUAL; WBC DIFF SAMPLE 100
[2017-06-26] MEDS: SODIUM CHLORIDE 0.9% FLUSH 10 ML FLUSH IV FLUSH SCH ×2 (08:17→20:59)
--- NOTE | 2017-06-26 08:29 | HHI.PR ---
Subjective Subjective Notes On precedex, per bedside RN oriented to person, not place or situation. NG output low. Objective Vitals/I&O Vital Signs Date Time Temp Pulse Resp B/P (MAP) Pulse Ox O2 Delivery O2 Flow Rate FiO2 06/26/17 08:00 69 06/26/17 08:00 98.1 20 165/77 (106) 98 06/26/17 07:00 Nasal Cannula 4.00 06/25/17 12:06 40 Labs Laboratory Tests Test 06/26/17 04:28 White Blood Count 7.5 Red Blood Count 2.89 Hemoglobin 8.6 Hematocrit 26.2 Mean Corpuscular Volume 90.6 Mean Corpuscular Hemoglobin 29.9 Mean Corpuscular Hemoglobin Concent 33.0 Red Cell Distribution Width 14.8 Platelet Count 238 Mean Platelet Volume 7.0 Neutrophils (%) (Auto) 72.7 Lymphocytes (%) (Auto) 11.2 Monocytes (%) (Auto) 10.8 Eosinophils (%) (Auto) 4.6 Basophils (%) (Auto) 0.7 Neutrophils # (Auto) 5.4 Lymphocytes # (Auto) 0.8 Monocytes # (Auto) 0.8 Eosinophils # (Auto) 0.3 Basophils # (Auto) 0.0 CBC Comment AUTO DIFF Differential Total Cells Counted 100 Neutrophils % (Manual) 74 Band Neutrophils % 2 Lymphocytes % 9 Monocytes % 10 Eosinophils % 3 Neutrophils # (Manual) 5.9 Promyelocytes 2 Differential Comment FINAL DIFF MANUAL Platelet Estimate NORMAL Platelet Morphology Comment NORMAL Red Cell Morphology Comment NORMAL Abdomen: Non-distended, Non-tender, Other (soft, UH present.) A/P Assessment and Plan Hiatal hernia with acute episode of intolerance to oral intake(?) UH. Still disoriented, per RN, will try to wean off precedex and use prn haldol. Plan DC NG and advance diet, bedside swallow function normal per RN. Will follow along, hopefully we can pursue a more elective repair of HH. Yordan Nick MD Jun 26, 2017 08:29
[2017-06-26] MEDS: SODIUM CHLOR 0.9% 1000 ML INJ 1,000 ML IV SCH (09:00)
[2017-06-26] MEDS: PANTOPRAZOLE SODIUM 40 MG VIAL IV SCH ×2 (09:14→20:04)
[2017-06-26] MEDS: LEVOFLOXACIN 500 MG PREMIX INJ 100 ML IV SCH (09:14)
--- NOTE | 2017-06-26 10:35 | HHI.PR ---
Subjective Remarks process control specialist Notes: 06/24: 71-year-old female with a past medical history significant for COPD, GERD , gastric ulcer, nephrolithiasis who presented to [facility] on 06/21 with severe epigastric pain nausea vomiting and coffee-ground emesis which started a day prior to her presentation. Patient continued to have significant nausea vomiting following admission. She was evaluated by GI. CT chest was negative for PE. CT abdomen pelvis revealed large hiatal hernia with hyperdense mass in the left kidney measuring 2.5 cm at the mid pole, diverticulosis without evidence of diverticulitis, umbilical hernia, normal- appearing liver spleen and gallbladder. Patient was evaluated by cardiology and GI. She had a 2-D echo which was reported as normal LV systolic function with some diastolic dysfunction. Patient underwent EGD which per discussion with critical care physician at [facility] revealed stomach full of food with gastritis and suspected gastric outlet obstruction. Patient was intubated electively during endoscopy. Since then she has been kept sedated, orally intubated on mechanical ventilation in the ICU. Her UA sent on admission at the outside hospital revealed UTI and she is growing Klebsiella as reported on her urine cultures. She was started on Levaquin for the UTI. Patient reportedly was doing okay on C Pap trials this morning. She was seen by the local surgeon at [facility] however he felt the patient needed to be transferred to [facility] and discussed the case with Dr. Wyatt aleman on 06/23 and patient was subsequently accepted for admission to critical care medicine service for further surgical evaluation following her arrival. I evaluated the patient immediately on arrival to the ICU on 06/24 around 4 PM. At that time she was sedated with propofol, orally intubated on mechanical ventilation. History was obtained by reviewing records and discussion with critical care physician at [facility]. 06/25: Remains sedated, orally intubated on mechanical ventilation. Hospitalist Notes: 06/26: Seen in her bedroom and discussed with nurse Miss Sotelo, no new issues , patient stable the nurse wants to move her to regular floor but continue on Precedex NG tube just removed. no nausea, vomit or diarrhea. Objective Vital Signs Date Time Temp Pulse Resp B/P (MAP) Pulse Ox O2 Delivery O2 Flow Rate FiO2 06/26/17 10:00 75 06/26/17 08:00 69 06/26/17 08:00 98.1 69 20 165/77 (106) 98 06/26/17 07:00 100 Nasal Cannula 4.00 06/26/17 07:00 100 Nasal Cannula 3.00 06/26/17 06:00 77 06/26/17 04:00 75 06/26/17 04:00 98.7 81 16 135/59 (84) 95 06/26/17 03:09 99 Nasal Cannula 3.00 06/26/17 02:00 78 06/26/17 00:14 96 3.00 06/26/17 00:00 98.3 84 18 135/61 (85) 97 06/26/17 00:00 84 06/25/17 22:00 88 06/25/17 20:00 98.3 94 28 148/65 (92) 98 06/25/17 20:00 93 06/25/17 19:29 94 4.00 06/25/17 19:00 98 Nasal Cannula 4.00 06/25/17 18:00 94 06/25/17 16:00 99.0 95 11 145/65 (91) 100 06/25/17 16:00 95 06/25/17 14:10 97 Nasal Cannula 4.00 06/25/17 14:05 96 Nasal Cannula 4 06/25/17 14:00 84 06/25/17 12:06 100 40 06/25/17 12:00 99.0 84 11 166/77 (106) 100 06/25/17 12:00 84 I/O 06/25/17 06/25/17 06/25/17 06/26/17 06/26/17 06/26/17 07:00 15:00 23:00 07:00 15:00 23:00 Intake Total 2554 ml 100 ml 797 ml Output Total 675 ml 2300 ml 2050 ml Balance 1879 ml 100 ml -2300 ml -1253 ml Intake IV Total 2554 ml 100 ml 797 ml Output Urine Total 675 ml 2300 ml 1850 ml Gastric Drainage Total 200 ml # Bowel Movements 2 Result Diagram: 06/26/17 0428 06/25/17 0515 Imaging Last Impressions Chest X-Ray 06/24/17 1602 Signed Impressions: Service Date/Time: Saturday, June 24, 2017 16:35 - CONCLUSION: 1. Consolidation and small effusion at the left lung base. 2. Appropriate position of the endotracheal tube. 3. Nasogastric tube courses into the stomach. It deviates to the left in the lower chest. Please see above. Demarcus Thurston MD Procedures Endotracheal Intubation and extubation. Other Results Laboratory Tests Test 06/24/17 16:55 06/25/17 05:15 06/26/17 04:28 Urine Color YELLOW Urine Turbidity HAZY Urine pH 5.5 Urine Specific [place] 1.029 Urine Protein 30 mg/dL Urine Glucose (UA) NEG mg/dL Urine Ketones NEG mg/dL Urine Occult Blood MOD Urine Nitrite NEG Urine Bilirubin NEG Urine Urobilinogen LESS THAN 2.0 MG/DL Urine Leukocyte Esterase SMALL Urine RBC 136 /hpf Urine WBC 6 /hpf Urine Squamous Epithelial Cells 1 /hpf Urine Amorphous Sediment RARE Urine Bacteria RARE /hpf Urine Mucus FEW /lpf Blood Urea Nitrogen 6 MG/DL Creatinine 0.39 MG/DL Random Glucose 92 MG/DL Total Protein 4.8 GM/DL Albumin 2.1 GM/DL Calcium Level 7.6 MG/DL Alkaline Phosphatase 63 U/L Aspartate Amino Transf (AST/SGOT) 14 U/L Alanine Aminotransferase (ALT/SGPT) 17 U/L Total Bilirubin 0.3 MG/DL Sodium Level 141 MEQ/L Potassium Level 3.5 MEQ/L Chloride Level 110 MEQ/L Carbon Dioxide Level 23.9 MEQ/L Anion Gap 7 MEQ/L Estimat Glomerular Filtration Rate 161 ML/MIN White Blood Count 7.5 TH/MM3 Red Blood Count 2.89 MIL/MM3 Hemoglobin 8.6 GM/DL Hematocrit 26.2 % Mean Corpuscular Volume 90.6 FL Mean Corpuscular Hemoglobin 29.9 PG Mean Corpuscular Hemoglobin Concent 33.0 % Red Cell Distribution Width 14.8 % Platelet Count 238 TH/MM3 Mean Platelet Volume 7.0 FL Neutrophils (%) (Auto) 72.7 % Lymphocytes (%) (Auto) 11.2 % Monocytes (%) (Auto) 10.8 % Eosinophils (%) (Auto) 4.6 % Basophils (%) (Auto) 0.7 % Neutrophils # (Auto) 5.4 TH/MM3 Lymphocytes # (Auto) 0.8 TH/MM3 Monocytes # (Auto) 0.8 TH/MM3 Eosinophils # (Auto) 0.3 TH/MM3 Basophils # (Auto) 0.0 TH/MM3 CBC Comment AUTO DIFF Differential Total Cells Counted 100 Neutrophils % (Manual) 74 % Band Neutrophils % 2 % Lymphocytes % 9 % Monocytes % 10 % Eosinophils % 3 % Neutrophils # (Manual) 5.9 TH/MM3 Promyelocytes 2 % Differential Comment FINAL DIFF MANUAL Platelet Estimate NORMAL Platelet Morphology Comment NORMAL Red Cell Morphology Comment NORMAL Objective Remarks HEENT/ Neuro: Sedated, orally intubated, Pallor present, no icterus, tongue/ mucosa moist Neck: No JVD Chest/Pulm: on mech vent, good air entry bilaterally, no wheezing or crackles CVS: S1-S2 regular, no murmur GI/abdomen: soft, nontender, bowel sounds sluggish. Ventral hernia noted in epigastric region. No organomegaly appreciated. Extremities: warm bilaterally, no edema Medications and IVs Current Medications Medications (Trade) Dose Ordered Sig/Goran Route Start Time Stop Time Status Last Admin Sodium Chloride 1,000 ml @ 75 mls/hr [id number] IV 06/24/17 17:00 06/26/17 09:00 (NS Flush) 2 ml UNSCH PRN IV FLUSH 06/24/17 16:15 (NS Flush) 2 ml BID IV FLUSH 06/24/17 21:00 06/25/17 20:43 (Duoneb Neb) 1 ampule Q6HR NEB NEB 06/24/17 16:15 06/26/17 03:06 (Duoneb Neb) 1 ampule Q4HR NEB PRN INH 06/24/17 16:15 (Protonix Inj) 40 mg Q12HR IV 06/24/17 21:00 06/26/17 09:14 Miscellaneous Information 1 [id number] XX 06/24/17 16:15 (Chlorhexidine 2% Cloth) 3 pack UNSCH PRN TOP 06/24/17 16:15 (NovoLOG SUPPLEMENTAL SCALE) 1 Q6HR SQ 06/24/17 18:00 Potassium Chloride 100 ml @ 50 mls/hr Q2H PRN IV 06/24/17 16:15 Potassium Chloride 100 ml @ 50 mls/hr Q2H PRN IV 06/24/17 16:15 (K-Lyte Cl Eff) 50 meq UNSCH PRN PO 06/24/17 16:15 Potassium Chloride 100 ml @ 25 mls/hr UNSCH PRN IV 06/24/17 16:15 06/25/17 06:39 Potassium Chloride 100 ml @ 50 mls/hr Q2H PRN IV 06/24/17 16:15 Magnesium Sulfate 4 gm/Sodium Chloride 100 ml @ 50 mls/hr UNSCH PRN IV 06/24/17 16:15 (Mag-Ox) 800 mg UNSCH PRN PO 06/24/17 16:15 Magnesium Sulfate 2 gm/Sodium Chloride 100 ml @ 50 mls/hr UNSCH PRN IV 06/24/17 16:15 (K-Phos) 2,000 mg Q4H PRN PO 06/24/17 16:15 Sodium Phosphate 30 mmol/Sodium Chloride 250 ml @ 42 mls/hr UNSCH PRN IV 06/24/17 16:15 (K-Phos) 2,000 mg UNSCH PRN PO/TUBE 06/24/17 16:15 Potassium Phosphate 30 mmol/ Sodium Chloride 260 ml @ 42 mls/hr UNSCH PRN IV 06/24/17 16:15 (Glucagon Inj) 1 mg UNSCH PRN OTHER 06/24/17 16:45 (fentaNYL INJ) 100 mcg Q4HR PRN IV PUSH 06/24/17 17:15 (Trandate Inj) 20 mg Q4H PRN IV PUSH 06/24/17 17:15 06/24/17 18:00 Midazolam HCl 100 ml @ 2 mls/hr Q24H PRN IV 06/24/17 17:35 (Lopressor Inj) 2.5 mg Q6H IV PUSH 06/24/17 18:00 06/26/17 05:19 Levofloxacin/ Dextrose 100 ml @ 100 mls/hr Q24H IV 06/25/17 09:00 06/26/17 09:14 Propofol 100 ml @ 1.854 mls/ hr TITRATE PRN IV 06/24/17 18:30 06/25/17 06:52 (D50w (Syr) Inj) 50 ml UNSCH PRN IV PUSH 06/25/17 17:30 06/25/17 17:31 Dexmedetomidine HCl 1000 mcg/ Sodium Chloride 250 ml @ 3.81 mls/hr Q24H PRN IV 06/26/17 01:30 06/26/17 01:41 (Haldol Inj) 5 mg Q4H PRN IV 06/26/17 08:00 A/P Assessment and Plan 1. Hematemesis suspected Gastric Outlet obstruction Followed by Critical Care physician until yesterday, was on Sedation with Propofol and Fentanyl, IV Hydration, NG to slow suction, and NPO GI specialist following, images from [facility] no evidence of Gastric Outlet obstruction, probable EGD. stable NG tube removed today and working on titrate down Precedex. 2. Anemia limit lab draws she is Spiritism 3. COPD on bronchodilators, was on Mechanical Ventilation, 4. GERD stable continue Gastric protection. 5. Hypertension Uncontrolled added Clonidine 0.1 mg every six hours as needed for systolic blood pressure over 160 mm Hg. 6. UTI on Levaquin for Klebsiella has Tellez cath from outside of the hospital Prophylaxis: On Protonix twice a day which will be continued. SCDs. No heparin or Lovenox in view of presentation with hematemesis till cleared by GI and general surgery. Discussed with pratik castillo Discharge Planning Once cleared by specialists King Vazquez MD Jun 26, 2017 10:35
[2017-06-26] MEDS: LOSARTAN 50 MG TAB PO SCH (12:08)
[2017-06-26] MEDS: ATENOLOL 50 MG TAB PO SCH (12:09)
[2017-06-26] MEDS: HYDROCHLOROTHIAZIDE 25 MG TAB PO SCH (12:09)
[2017-06-26] MEDS: SUCRALFATE 1 GM TAB PO SCH ×2 (12:09→17:18)
[2017-06-26] MEDS: PARoxetine HCL 20 MG TAB PO SCH (12:19)
--- NOTE | 2017-06-26 16:34 | HHI.PR ---
Subjective Subjective Notes more awake and alert. RN at bedside. Pt has been tolerating a diet, mashed potatoes, water, juices. No Nausea. She has been coughing a little. She denies abdominal pain, reflux, etc. Objective Vitals/I&O Vital Signs Date Time Temp Pulse Resp B/P (MAP) Pulse Ox O2 Delivery O2 Flow Rate FiO2 06/26/17 14:19 94 Nasal Cannula 2.00 06/26/17 14:00 74 06/26/17 12:00 98.1 19 174/79 (110) 06/25/17 12:06 40 Labs Laboratory Tests Test 06/26/17 04:28 White Blood Count 7.5 Red Blood Count 2.89 Hemoglobin 8.6 Hematocrit 26.2 Mean Corpuscular Volume 90.6 Mean Corpuscular Hemoglobin 29.9 Mean Corpuscular Hemoglobin Concent 33.0 Red Cell Distribution Width 14.8 Platelet Count 238 Mean Platelet Volume 7.0 Neutrophils (%) (Auto) 72.7 Lymphocytes (%) (Auto) 11.2 Monocytes (%) (Auto) 10.8 Eosinophils (%) (Auto) 4.6 Basophils (%) (Auto) 0.7 Neutrophils # (Auto) 5.4 Lymphocytes # (Auto) 0.8 Monocytes # (Auto) 0.8 Eosinophils # (Auto) 0.3 Basophils # (Auto) 0.0 CBC Comment AUTO DIFF Differential Total Cells Counted 100 Neutrophils % (Manual) 74 Band Neutrophils % 2 Lymphocytes % 9 Monocytes % 10 Eosinophils % 3 Neutrophils # (Manual) 5.9 Promyelocytes 2 Differential Comment FINAL DIFF MANUAL Platelet Estimate NORMAL Platelet Morphology Comment NORMAL Red Cell Morphology Comment NORMAL Abdomen: Non-distended, Non-tender, Other ([facility].) A/P Assessment and Plan Hiatal hernia with acute episode of intolerance to oral intake(?). Gastritis. Anemia. UH. UTI on abx. Off precedex. abdomen benign. Tolerating a diet without sign of obstruction. I recommend against any acute surgical treatment of her hiatal hernia. If she continues to progress, I would recommend she be treated for her UTI, complete outpatient preop GI workup and consider a more elective repair of her HH if needed. Yordan Nick MD Jun 26, 2017 16:34
[2017-06-26] MEDS ORDERED: POTASSIUM CHLORIDE 20 MEQ CONTROLLED RELEASE TAB PO ONE (20:00)
[2017-06-26] MEDS ORDERED: MORPHINE SULFATE 4 MG/ML INJ IV PUSH ONE (20:00)
[2017-06-26] MEDS ORDERED: FUROSEMIDE 40 MG/4 ML VIAL IV PUSH ONE (20:00)
[2017-06-26] MEDS ORDERED: PICC PRN Heparin 100 units/ml Lock Flush IV FLUSH (21:30)
[2017-06-26] MEDS ORDERED: PICC PRN After Blood Draw NS Lock Flush IV FLUSH (21:30)
[2017-06-26] MEDS ORDERED: SODIUM CHLORIDE 0.9% FLUSH 10 ML FLUSH IV FLUSH PRN ×2 (21:30)
[2017-06-26] MEDS: ZOLPIDEM TARTRATE 5 MG TAB PO PRN (23:30)
[2017-06-27] VITALS (13 sets, daily range): BP systolic 117–169; BP diastolic 56–77; PULSE 82–112; RESP 12–28; TEMP 97.9–99.6; O2SAT 95–100
[2017-06-27] MEDS: LABETALOL HCL 100 MG/20 ML VIAL IV PUSH PRN ×2 (00:37→21:15)
[2017-06-27] MEDS ORDERED: ONDANSETRON HCL 4 MG/2 ML VIAL IV PUSH PRN (01:00)
[2017-06-27 01:05] LABS: BASOPHIL # 0.1 TH/MM3 (0-0.2); BASOPHIL % 1.3 % (0.0-2.0); EOSINOPHIL # 0.3 TH/MM3 (0-0.4); EOSINOPHIL % 3.2 % (0.0-4.0); HEMATOCRIT 28.3 % (35.0-46.0); LYMPH % 10.2 % (9.0-44.0); MEAN CELL VOLUME 89.7 FL (80.0-100.0); MEAN CORPUSCULAR HEMOGLOBIN 29.4 PG (27.0-34.0); MEAN CORPUSCULAR HGB CONC 32.8 % (32.0-36.0); MONO % 12.4 % (0.0-8.0); NEUT % 72.9 % (16.0-70.0); PLATELET COUNT 299 TH/MM3 (150-450); RED BLOOD COUNT 3.16 MIL/MM3 (4.00-5.30); RED CELL DISTRIBUTION WIDTH 14.5 % (11.6-17.2); WHITE BLOOD COUNT 9.6 TH/MM3 (4.0-11.0)
[2017-06-27 01:31] LABS: ALKALINE PHOSPHATASE 63 U/L (45-117); ALT (GPT) 20 U/L (10-53); ANION GAP 10 MEQ/L (5-15); AST (GOT) 25 U/L (15-37); BICARBONATE 27.9 MEQ/L (21.0-32.0); BLOOD UREA NITROGEN 3 MG/DL (7-18); CHLORIDE 100 MEQ/L (98-107); GLOMERULAR FILTRATION RATE 140 ML/MIN (>89); MAGNESIUM 1.5 MG/DL (1.5-2.5); SODIUM (NA) 138 MEQ/L (136-145); TOTAL BILIRUBIN ADULT 0.6 MG/DL (0.2-1.0)
[2017-06-27 01:35] LABS: POTASSIUM 2.7 MEQ/L (3.5-5.1)
[2017-06-27] MEDS: POTASSIUM CHLOR 40 MEQ PREMIX 100 ML IV PRN ×2 (01:51→05:06)
[2017-06-27 02:04] LABS: HEMO FLAGS AUTO DIFF
[2017-06-27 02:05] LABS: SCAN/DIFF AUTO DIFF CONFIRMED
[2017-06-27] MEDS: cloNIDine HCL 0.1 MG TAB PO PRN (02:48)
[2017-06-27] MEDS: RESP: ALBUTEROL 2.5 MG/IPRATROPIUM 0.5 MG NEB (SCH) NEB ×4 (03:52→22:00)
[2017-06-27] MEDS: HALOPERIDOL LACTATE 5 MG/ML AMP IV PRN ×2 (04:14→12:49)
[2017-06-27] MEDS: INSULIN ASPART SUPPLEMENTAL SCALE SQ SCH ×3 (05:47→17:52)
[2017-06-27] MEDS: METOPROLOL TARTRATE 5 MG/5 ML VIAL IV PUSH SCH ×3 (05:59→16:40)
[2017-06-27] MEDS: LEVOFLOXACIN 500 MG PREMIX INJ 100 ML IV SCH (08:30)
[2017-06-27] MEDS: HYDROCHLOROTHIAZIDE 25 MG TAB PO SCH (08:31)
[2017-06-27] MEDS: SUCRALFATE 1 GM TAB PO SCH ×3 (08:31→16:40)
[2017-06-27] MEDS: ATENOLOL 50 MG TAB PO SCH (08:31)
[2017-06-27] MEDS: PICC Daily Heparin 100 unit/mL Lock Flush IV FLUSH SCH (08:31)
[2017-06-27] MEDS: LOSARTAN 50 MG TAB PO SCH (08:31)
[2017-06-27] MEDS: PANTOPRAZOLE SODIUM 40 MG VIAL IV SCH ×2 (08:31→20:50)
[2017-06-27] MEDS: PARoxetine HCL 20 MG TAB PO SCH (08:31)
[2017-06-27] MEDS: SODIUM CHLORIDE 0.9% FLUSH 10 ML FLUSH IV FLUSH SCH ×2 (08:32→20:48)
--- NOTE | 2017-06-27 12:08 | HHI.PR ---
Subjective Remarks family support specialist Notes: 06/24: 71-year-old female with a past medical history significant for COPD, GERD , gastric ulcer, nephrolithiasis who presented to [facility] on 06/21 with severe epigastric pain nausea vomiting and coffee-ground emesis which started a day prior to her presentation. Patient continued to have significant nausea vomiting following admission. She was evaluated by GI. CT chest was negative for PE. CT abdomen pelvis revealed large hiatal hernia with hyperdense mass in the left kidney measuring 2.5 cm at the mid pole, diverticulosis without evidence of diverticulitis, umbilical hernia, normal- appearing liver spleen and gallbladder. Patient was evaluated by cardiology and GI. She had a 2-D echo which was reported as normal LV systolic function with some diastolic dysfunction. Patient underwent EGD which per discussion with critical care physician at [facility] revealed stomach full of food with gastritis and suspected gastric outlet obstruction. Patient was intubated electively during endoscopy. Since then she has been kept sedated, orally intubated on mechanical ventilation in the ICU. Her UA sent on admission at the outside hospital revealed UTI and she is growing Klebsiella as reported on her urine cultures. She was started on Levaquin for the UTI. Patient reportedly was doing okay on C Pap trials this morning. She was seen by the local surgeon at [facility] however he felt the patient needed to be transferred to [facility] and discussed the case with Dr. Wyatt aleman on 06/23 and patient was subsequently accepted for admission to critical care medicine service for further surgical evaluation following her arrival. I evaluated the patient immediately on arrival to the ICU on 06/24 around 4 PM. At that time she was sedated with propofol, orally intubated on mechanical ventilation. History was obtained by reviewing records and discussion with critical care physician at [facility]. 06/25: Remains sedated, orally intubated on mechanical ventilation. Hospitalist Notes: 06/26: Seen in her bedroom and discussed with nurse Miss Sotelo, no new issues , patient stable the nurse wants to move her to regular floor but continue on Precedex NG tube just removed. 06/27: Followed by General command and control specialist, as per Doctor Nick the patient is tolerating diet, recommended against surgical treatment for Hiatal Hernia continue treatment for UTI, complete outpatient GI workup and consider more elective repair for her HH if needed. seen in her bedroom, discussed with nurse patient with no complaint, asked for PT, transfer to Medical and surgical floor and remove Tellez cath, no nausea, vomit or diarrhea. Objective Vital Signs Date Time Temp Pulse Resp B/P (MAP) Pulse Ox O2 Delivery O2 Flow Rate FiO2 06/27/17 10:21 100 Nasal Cannula 3.00 06/27/17 10:00 109 06/27/17 08:00 99.3 112 12 99 06/27/17 08:00 111 06/27/17 07:00 100 Nasal Cannula 4.00 40 Humidified 06/27/17 06:00 90 06/27/17 04:00 93 06/27/17 04:00 98.6 92 18 163/73 (103) 97 06/27/17 03:54 99 Nasal Cannula 4.00 06/27/17 02:00 95 06/27/17 00:00 99.6 104 28 169/77 (107) 96 06/27/17 00:00 104 06/26/17 22:00 95 06/26/17 20:00 98 06/26/17 20:00 98.4 96 26 140/65 (90) 94 06/26/17 19:00 92 Nasal Cannula 4.00 06/26/17 18:00 89 06/26/17 16:00 81 06/26/17 16:00 98.1 80 15 148/73 (98) 99 06/26/17 14:19 94 Nasal Cannula 2.00 06/26/17 14:00 74 I/O 06/26/17 06/26/17 06/26/17 06/27/17 06/27/17 06/27/17 06:59 14:59 22:59 06:59 14:59 22:59 Intake Total 797 ml 98 ml 1882 ml 274 ml 200 ml Output Total 2050 ml 2550 ml 900 ml Balance -1253 ml 98 ml -668 ml -626 ml 200 ml Intake Oral 300 ml 60 ml IV Total 797 ml 98 ml 1582 ml 214 ml 200 ml Output Urine Total 1850 ml 2550 ml 900 ml Gastric Drainage Total 200 ml Result Diagram: 06/27/17 0015 06/27/17 0015 Imaging Last Impressions Chest X-Ray 06/24/17 1602 Signed Impressions: Service Date/Time: Saturday, June 24, 2017 16:35 - CONCLUSION: 1. Consolidation and small effusion at the left lung base. 2. Appropriate position of the endotracheal tube. 3. Nasogastric tube courses into the stomach. It deviates to the left in the lower chest. Please see above. Demarcus Thurston MD Procedures Endotracheal Intubation and extubation. Other Results Laboratory Tests Test 06/24/17 16:55 06/26/17 04:28 06/26/17 23:00 06/27/17 00:15 Urine Color YELLOW Urine Turbidity HAZY Urine pH 5.5 Urine Specific Armstrong 1.029 Urine Protein 30 mg/dL Urine Glucose (UA) NEG mg/dL Urine Ketones NEG mg/dL Urine Occult Blood MOD Urine Nitrite NEG Urine Bilirubin NEG Urine Urobilinogen LESS THAN 2.0 MG/DL Urine Leukocyte Esterase SMALL Urine RBC 136 /hpf Urine WBC 6 /hpf Urine Squamous Epithelial Cells 1 /hpf Urine Amorphous Sediment RARE Urine Bacteria RARE /hpf Urine Mucus FEW /lpf Differential Total Cells Counted 100 Neutrophils % (Manual) 74 % Band Neutrophils % 2 % Lymphocytes % 9 % Monocytes % 10 % Eosinophils % 3 % Neutrophils # (Manual) 5.9 TH/MM3 Promyelocytes 2 % Platelet Estimate NORMAL Platelet Morphology Comment NORMAL Red Cell Morphology Comment NORMAL Nasal Screen MRSA (PCR) MRSA NOT DETECTED White Blood Count 9.6 TH/MM3 Red Blood Count 3.16 MIL/MM3 Hemoglobin 9.3 GM/DL Hematocrit 28.3 % Mean Corpuscular Volume 89.7 FL Mean Corpuscular Hemoglobin 29.4 PG Mean Corpuscular Hemoglobin Concent 32.8 % Red Cell Distribution Width 14.5 % Platelet Count 299 TH/MM3 Mean Platelet Volume 7.6 FL Neutrophils (%) (Auto) 72.9 % Lymphocytes (%) (Auto) 10.2 % Monocytes (%) (Auto) 12.4 % Eosinophils (%) (Auto) 3.2 % Basophils (%) (Auto) 1.3 % Neutrophils # (Auto) 7.0 TH/MM3 Lymphocytes # (Auto) 1.0 TH/MM3 Monocytes # (Auto) 1.2 TH/MM3 Eosinophils # (Auto) 0.3 TH/MM3 Basophils # (Auto) 0.1 TH/MM3 CBC Comment AUTO DIFF Differential Comment AUTO DIFF CONFIRMED Blood Urea Nitrogen 3 MG/DL Creatinine 0.44 MG/DL Random Glucose 92 MG/DL Total Protein 5.2 GM/DL Albumin 2.3 GM/DL Calcium Level 7.9 MG/DL Magnesium Level 1.5 MG/DL Alkaline Phosphatase 63 U/L Aspartate Amino Transf (AST/SGOT) 25 U/L Alanine Aminotransferase (ALT/SGPT) 20 U/L Total Bilirubin 0.6 MG/DL Sodium Level 138 MEQ/L Potassium Level 2.7 MEQ/L Chloride Level 100 MEQ/L Carbon Dioxide Level 27.9 MEQ/L Anion Gap 10 MEQ/L Estimat Glomerular Filtration Rate 140 ML/MIN Objective Remarks General: Obesity, No acute distress. ENT: wet mucous membranes. Neck: Supple, no JVD, no lymphadenopathy. Chest/Pulm: on mech vent, good air entry bilaterally, no wheezing or crackles CVS: S1-S2 regular, no murmur GI/abdomen: soft, nontender, bowel sounds sluggish. Ventral hernia noted in epigastric region. No organomegaly appreciated. Extremities: warm bilaterally, no edema Medications and IVs Current Medications Medications (Trade) Dose Ordered Sig/Goran Route Start Time Stop Time Status Last Admin (NS Flush) 2 ml UNSCH PRN IV FLUSH 06/24/17 16:15 (NS Flush) 2 ml BID IV FLUSH 06/24/17 21:00 06/27/17 08:32 (Duoneb Neb) 1 ampule Q6HR NEB NEB 06/24/17 16:15 06/27/17 10:21 (Duoneb Neb) 1 ampule Q4HR NEB PRN INH 06/24/17 16:15 (Protonix Inj) 40 mg Q12HR IV 06/24/17 21:00 06/27/17 08:31 Miscellaneous Information 1 Q361D XX 06/24/17 16:15 (Chlorhexidine 2% Cloth) 3 pack UNSCH PRN TOP 06/24/17 16:15 06/26/17 04:00 (NovoLOG SUPPLEMENTAL SCALE) 1 Q6HR SQ 06/24/17 18:00 Potassium Chloride 100 ml @ 50 mls/hr Q2H PRN IV 06/24/17 16:15 06/27/17 05:06 Potassium Chloride 100 ml @ 50 mls/hr Q2H PRN IV 06/24/17 16:15 (K-Lyte Cl Eff) 50 meq UNSCH PRN PO 06/24/17 16:15 Potassium Chloride 100 ml @ 25 mls/hr UNSCH PRN IV 06/24/17 16:15 06/25/17 06:39 Potassium Chloride 100 ml @ 50 mls/hr Q2H PRN IV 06/24/17 16:15 Magnesium Sulfate 4 gm/Sodium Chloride 100 ml @ 50 mls/hr UNSCH PRN IV 06/24/17 16:15 (Mag-Ox) 800 mg UNSCH PRN PO 06/24/17 16:15 06/27/17 10:21 Magnesium Sulfate 2 gm/Sodium Chloride 100 ml @ 50 mls/hr UNSCH PRN IV 06/24/17 16:15 (K-Phos) 2,000 mg Q4H PRN PO 06/24/17 16:15 Sodium Phosphate 30 mmol/Sodium Chloride 250 ml @ 42 mls/hr UNSCH PRN IV 06/24/17 16:15 (K-Phos) 2,000 mg UNSCH PRN PO/TUBE 06/24/17 16:15 Potassium Phosphate 30 mmol/ Sodium Chloride 260 ml @ 42 mls/hr UNSCH PRN IV 06/24/17 16:15 (Glucagon Inj) 1 mg UNSCH PRN OTHER 06/24/17 16:45 (fentaNYL INJ) 100 mcg Q4HR PRN IV PUSH 06/24/17 17:15 (Trandate Inj) 20 mg Q4H PRN IV PUSH 06/24/17 17:15 06/27/17 00:37 (Lopressor Inj) 2.5 mg Q6H IV PUSH 06/24/17 18:00 06/27/17 11:10 Levofloxacin/ Dextrose 100 ml @ 100 mls/hr Q24H IV 06/25/17 09:00 06/27/17 08:30 (D50w (Syr) Inj) 50 ml UNSCH PRN IV PUSH 06/25/17 17:30 06/25/17 17:31 Dexmedetomidine HCl 1000 mcg/ Sodium Chloride 250 ml @ 3.81 mls/hr Q24H PRN IV 06/26/17 01:30 06/26/17 01:41 (Haldol Inj) 5 mg Q4H PRN IV 06/26/17 08:00 06/27/17 04:14 (Tenormin) 50 mg DAILY PO 06/26/17 10:30 8/30/17 08:31 (Hydrodiuril) 25 mg DAILY PO 06/26/17 10:30 06/27/17 08:31 (Cozaar) 100 mg DAILY PO 06/26/17 10:30 06/27/17 08:31 (Carafate) 1 gm TID PO 06/26/17 13:00 06/27/17 08:31 (Ambien) 5 mg HS PRN PO 06/26/17 10:30 06/26/17 23:30 (Paxil) 30 mg DAILY PO 06/26/17 11:30 06/27/17 08:31 (Catapres) 0.1 mg Q6H PRN PO 06/26/17 15:00 06/27/17 02:48 (NS Flush) 5 ml UNSCH PRN IV FLUSH 06/26/17 21:30 (Heparin Central Flush) 200 units DAILY IV FLUSH 06/27/17 09:00 06/27/17 08:31 (NS Flush) 5 ml UNSCH PRN IV FLUSH 06/26/17 21:30 (Heparin Central Flush) 200 units UNSCH PRN IV FLUSH 06/26/17 21:30 06/26/17 21:56 (NS Flush) 5 ml UNSCH PRN IV FLUSH 06/26/17 21:30 (Zofran Inj) 4 mg Q6HR PRN IV PUSH 06/27/17 01:00 06/27/17 01:02 A/P Assessment and Plan 1. Hematemesis suspected Gastric Outlet obstruction Followed by Critical Care physician until yesterday, was on Sedation with Propofol and Fentanyl, IV Hydration, NG to slow suction, and NPO GI specialist following, images from [facility] no evidence of Gastric Outlet obstruction, NG tube removed yesterday, off Precedex. seen by her Primary General Surgeon, Doctor Nick the patient is tolerating diet, recommended against surgical treatment for Hiatal Hernia continue treatment for UTI, complete outpatient GI workup and consider more elective repair for her HH if needed. removed Tellez catheter transfer to Med Surg. Physical Therapy consult 2. Electrolyte derangement replacing. and following. 3. COPD on bronchodilators, was on Mechanical Ventilation, 4. GERD stable continue Gastric protection. 5. Hypertension Uncontrolled added Clonidine 0.1 mg every six hours as needed for systolic blood pressure over 160 mm Hg. 6. UTI on Levaquin for Klebsiella has Tellez cath from outside of the hospital, will remove Tellez cath at this time. 7. Anemia limit lab draws she is Christian Prophylaxis: On Protonix twice a day which will be continued. SCDs. No heparin or Lovenox in view of presentation with hematemesis till cleared by GI and general surgery. Discussed with patient and nurse, all questions answered to the best of my abilities. Discharge Planning Once cleared by specialists King Vazquez MD Jun 27, 2017 12:08
[2017-06-27 13:58] LABS: MAGNESIUM 1.6 MG/DL (1.5-2.5); POTASSIUM 3.7 MEQ/L (3.5-5.1)
--- NOTE | 2017-06-27 16:36 | HHI.GIFU ---
Subjective Remarks Pt OOB to chair, family at bedside. She is c/o arthritis pain and asking about amitriptyline. Tolerating soft diet, had broccoli, mashed potatoes today. (Bailey Riddle) Objective Vitals I&O Vital Signs Date Time Temp Pulse Resp B/P (MAP) Pulse Ox O2 Delivery O2 Flow Rate FiO2 06/27/17 16:00 83 06/27/17 16:00 98.4 83 24 150/66 (94) 95 06/27/17 14:00 84 06/27/17 12:00 109 06/27/17 12:00 98.5 109 19 117/56 (76) 99 06/27/17 10:21 100 Nasal Cannula 3.00 06/27/17 10:00 109 06/27/17 08:00 99.3 112 12 99 06/27/17 08:00 111 06/27/17 07:00 100 Nasal Cannula 4.00 40 Humidified 06/27/17 06:00 90 06/27/17 04:00 93 06/27/17 04:00 98.6 92 18 163/73 (103) 97 06/27/17 03:54 99 Nasal Cannula 4.00 06/27/17 02:00 95 06/27/17 00:00 99.6 104 28 169/77 (107) 96 06/27/17 00:00 104 06/26/17 22:00 95 06/26/17 20:00 98 06/26/17 20:00 98.4 96 26 140/65 (90) 94 06/26/17 19:00 92 Nasal Cannula 4.00 06/26/17 18:00 89 I/O 06/26/17 06/26/17 06/26/17 06/27/17 06/27/17 06/27/17 07:00 15:00 23:00 07:00 15:00 23:00 Intake Total 797 ml 98 ml 1882 ml 274 ml 200 ml Output Total 2050 ml 2550 ml 900 ml Balance -1253 ml 98 ml -668 ml -626 ml 200 ml Intake Oral 300 ml 60 ml IV Total 797 ml 98 ml 1582 ml 214 ml 200 ml Output Urine Total 1850 ml 2550 ml 900 ml Gastric Drainage Total 200 ml Laboratory Laboratory Tests Test 06/26/17 23:00 06/27/17 00:15 06/27/17 13:00 Nasal Screen MRSA (PCR) MRSA NOT DETECTED White Blood Count 9.6 Red Blood Count 3.16 Hemoglobin 9.3 Hematocrit 28.3 Mean Corpuscular Volume 89.7 Mean Corpuscular Hemoglobin 29.4 Mean Corpuscular Hemoglobin Concent 32.8 Red Cell Distribution Width 14.5 Platelet Count 299 Mean Platelet Volume 7.6 Neutrophils (%) (Auto) 72.9 Lymphocytes (%) (Auto) 10.2 Monocytes (%) (Auto) 12.4 Eosinophils (%) (Auto) 3.2 Basophils (%) (Auto) 1.3 Neutrophils # (Auto) 7.0 Lymphocytes # (Auto) 1.0 Monocytes # (Auto) 1.2 Eosinophils # (Auto) 0.3 Basophils # (Auto) 0.1 CBC Comment AUTO DIFF Differential Comment AUTO DIFF CONFIRMED Blood Urea Nitrogen 3 Creatinine 0.44 Random Glucose 92 Total Protein 5.2 Albumin 2.3 Calcium Level 7.9 Magnesium Level 1.5 1.6 Alkaline Phosphatase 63 Aspartate Amino Transf (AST/SGOT) 25 Alanine Aminotransferase (ALT/SGPT) 20 Total Bilirubin 0.6 Sodium Level 138 Potassium Level 2.7 3.7 Chloride Level 100 Carbon Dioxide Level 27.9 Anion Gap 10 Estimat Glomerular Filtration Rate 140 Imaging Last Impressions Chest X-Ray 06/24/17 1602 Signed Impressions: Service Date/Time: Saturday, June 24, 2017 16:35 - CONCLUSION: 1. Consolidation and small effusion at the left lung base. 2. Appropriate position of the endotracheal tube. 3. Nasogastric tube courses into the stomach. It deviates to the left in the lower chest. Please see above. Demarcus Thurston MD Physical Exam HEENT: PERRL; atraumatic; no jaundice. CHEST: CTA CARDIAC: RRR ABDOMEN: Soft, nondistended, nontender; no hepatosplenomegaly; bowel sounds are present in all four quadrants. EXTREMITIES: No clubbing, cyanosis, or edema. SKIN: Normal; no rash; no jaundice. HR OPERATIONS ADVISOR: No focal deficits; alert and oriented times three. (Bailey Riddle) Assessment and Plan Plan ASSESSMENT: - Recent upper GIB, coffee ground emesis. Pt was admitted to [facility] on 06/[facility] for n/v/coffee ground emesis, abdominal pain. Per the EMR, her EGD revealed stomach full of food with gastritis and suspected gastric outlet obstruction. Per nurse, has not had any GI bleeding since arrival to this facility. Protonix with BID dosing. - Large HH with N/V/pain with concern for gastric outlet obstruction. CT abdomen pelvis revealed large hiatal hernia with hyperdense mass in the left kidney measuring 2.5 cm at the mid pole, diverticulosis without evidence of diverticulitis, umbilical hernia, normal-appearing liver spleen and gallbladder. Concern for gastric outlet obstruction on recent EGD. She was evaluated by GS at [facility] and transferred to this facility for surgical evaluation. S/P Upper GI series (06/24/17) and revealed no evidence of gastric outlet obstruction, no evidence of small bowel obstruction. GS recommends soft diet, poss elective repair hernia but no surgery planned at this time. - Anemia, blood loss. HH stable. No active bleeding. - Respiratory failure/COPD. Intubated, on CPAP per [facility]. - GERD, Hx PUD. PPI with BID dosing. - HTN, Hyperlipidemia, Depression - Hx rectal/colon cancer. Daughter states she had colon cancer in 2001- s/p radiation/chemotherapy, last colonoscopy last year. PLAN: - soft diet - chew food well, take small bites - Protonix with BID dosing - Monitor HH - Transfuse as necessary - GS following - Supportive care - No plans for repeat EGD at this time, unless there is active bleeding. - f/u with GI as outpatient - Pt seen and examined by Dr. Jimenez and myself and this note is written on his behalf (Bailey Riddle) Physician Comments Continue current treatment plan, please notify us if needed. (Willam Jimenez MD) Bailey Riddle Jun 27, 2017 16:36 Willam Jimenez MD Jun 27, 2017 22:48
[2017-06-27] MEDS: ACETAMINOPHEN 325 MG TAB PO PRN (16:40)
--- NOTE | 2017-06-27 17:03 | HHI.PR ---
Subjective Subjective Notes sitting up in chair, in no distress. She denies abdominal pain. She is eating and drinking without difficulty. Objective Vitals/I&O Vital Signs Date Time Temp Pulse Resp B/P (MAP) Pulse Ox O2 Delivery O2 Flow Rate FiO2 06/27/17 16:00 83 06/27/17 16:00 98.4 24 150/66 (94) 95 06/27/17 10:21 Nasal Cannula 3.00 06/27/17 07:00 40 Labs Laboratory Tests Test 06/26/17 23:00 06/27/17 00:15 06/27/17 13:00 Nasal Screen MRSA (PCR) MRSA NOT DETECTED White Blood Count 9.6 Red Blood Count 3.16 Hemoglobin 9.3 Hematocrit 28.3 Mean Corpuscular Volume 89.7 Mean Corpuscular Hemoglobin 29.4 Mean Corpuscular Hemoglobin Concent 32.8 Red Cell Distribution Width 14.5 Platelet Count 299 Mean Platelet Volume 7.6 Neutrophils (%) (Auto) 72.9 Lymphocytes (%) (Auto) 10.2 Monocytes (%) (Auto) 12.4 Eosinophils (%) (Auto) 3.2 Basophils (%) (Auto) 1.3 Neutrophils # (Auto) 7.0 Lymphocytes # (Auto) 1.0 Monocytes # (Auto) 1.2 Eosinophils # (Auto) 0.3 Basophils # (Auto) 0.1 CBC Comment AUTO DIFF Differential Comment AUTO DIFF CONFIRMED Blood Urea Nitrogen 3 Creatinine 0.44 Random Glucose 92 Total Protein 5.2 Albumin 2.3 Calcium Level 7.9 Magnesium Level 1.5 1.6 Alkaline Phosphatase 63 Aspartate Amino Transf (AST/SGOT) 25 Alanine Aminotransferase (ALT/SGPT) 20 Total Bilirubin 0.6 Sodium Level 138 Potassium Level 2.7 3.7 Chloride Level 100 Carbon Dioxide Level 27.9 Anion Gap 10 Estimat Glomerular Filtration Rate 140 Abdomen: Non-distended, Non-tender, Other (UH, no change.), BS normal A/P Assessment and Plan Hiatal hernia with acute episode of intolerance to oral intake(?). Gastritis. Anemia. UH. UTI on abx. Appears to be improving. Maybe her N/V was related to her UTI? No indication for surgery at this time. OK for DC with follow up as needed. Will sign off. Yordan Nick MD Jun 27, 2017 17:03
[2017-06-27] MEDS: ZOLPIDEM TARTRATE 5 MG TAB PO PRN (21:03)
[2017-06-28] VITALS (8 sets, daily range): BP systolic 140–176; BP diastolic 69–83; PULSE 72–93; RESP 17–24; TEMP 96.9–98.6; O2SAT 92–100
[2017-06-28] MEDS: METOPROLOL TARTRATE 5 MG/5 ML VIAL IV PUSH SCH ×3 (00:07→11:14)
[2017-06-28] MEDS: LABETALOL HCL 100 MG/20 ML VIAL IV PUSH PRN (01:18)
[2017-06-28] MEDS: RESP: ALBUTEROL 2.5 MG/IPRATROPIUM 0.5 MG NEB (SCH) NEB ×2 (03:33→09:26)
[2017-06-28] MEDS: INSULIN ASPART SUPPLEMENTAL SCALE SQ SCH ×5 (06:00→23:59)
[2017-06-28] MEDS: ACETAMINOPHEN 325 MG TAB PO PRN (07:11)
[2017-06-28] MEDS: PICC Daily Heparin 100 unit/mL Lock Flush IV FLUSH SCH (07:31)
[2017-06-28] MEDS: PARoxetine HCL 20 MG TAB PO SCH (07:31)
[2017-06-28] MEDS: LEVOFLOXACIN 500 MG PREMIX INJ 100 ML IV SCH (07:31)
[2017-06-28] MEDS: PANTOPRAZOLE SODIUM 40 MG VIAL IV SCH ×2 (07:31→19:53)
[2017-06-28] MEDS: LOSARTAN 50 MG TAB PO SCH (07:32)
[2017-06-28] MEDS: HYDROCHLOROTHIAZIDE 25 MG TAB PO SCH (07:32)
[2017-06-28] MEDS: SODIUM CHLORIDE 0.9% FLUSH 10 ML FLUSH IV FLUSH SCH ×2 (07:32→19:53)
[2017-06-28] MEDS: SUCRALFATE 1 GM TAB PO SCH ×3 (07:32→17:55)
[2017-06-28] MEDS: ATENOLOL 50 MG TAB PO SCH (07:32)
[2017-06-28] MEDS: cloNIDine HCL 0.1 MG TAB PO PRN (10:28)
--- NOTE | 2017-06-28 11:31 | HHI.PR ---
Subjective Remarks training specialist Notes: 06/24: 71-year-old female with a past medical history significant for COPD, GERD , gastric ulcer, nephrolithiasis who presented to [facility] on 06/21 with severe epigastric pain nausea vomiting and coffee-ground emesis which started a day prior to her presentation. Patient continued to have significant nausea vomiting following admission. She was evaluated by GI. CT chest was negative for PE. CT abdomen pelvis revealed large hiatal hernia with hyperdense mass in the left kidney measuring 2.5 cm at the mid pole, diverticulosis without evidence of diverticulitis, umbilical hernia, normal- appearing liver spleen and gallbladder. Patient was evaluated by cardiology and GI. She had a 2-D echo which was reported as normal LV systolic function with some diastolic dysfunction. Patient underwent EGD which per discussion with critical care physician at [facility] revealed stomach full of food with gastritis and suspected gastric outlet obstruction. Patient was intubated electively during endoscopy. Since then she has been kept sedated, orally intubated on mechanical ventilation in the ICU. Her UA sent on admission at the outside hospital revealed UTI and she is growing Klebsiella as reported on her urine cultures. She was started on Levaquin for the UTI. Patient reportedly was doing okay on C Pap trials this morning. She was seen by the local surgeon at [facility] however he felt the patient needed to be transferred to [facility] and discussed the case with Dr. Wyatt aleman on 06/23 and patient was subsequently accepted for admission to critical care medicine service for further surgical evaluation following her arrival. I evaluated the patient immediately on arrival to the ICU on 06/24 around 4 PM. At that time she was sedated with propofol, orally intubated on mechanical ventilation. History was obtained by reviewing records and discussion with critical care physician at [facility]. 06/25: Remains sedated, orally intubated on mechanical ventilation. Hospitalist Notes: 06/26: Seen in her bedroom and discussed with nurse Miss Sotelo, no new issues , patient stable the nurse wants to move her to regular floor but continue on Precedex NG tube just removed. 06/27: Followed by General hazardous material specialist, as per Doctor Nick the patient is tolerating diet, recommended against surgical treatment for Hiatal Hernia continue treatment for UTI, complete outpatient GI workup and consider more elective repair for her HH if needed. seen in her bedroom, discussed with nurse patient with no complaint, asked for PT, transfer to Medical and surgical floor and remove Tellez cath. 06/28: Seen in Intensive Care Unit in the presence of nurse Miss Wang and her two daughters, they do not feel comfortable with her Mother been discharged at this time will wait one more day I agree will be transferred to general floor and follow from there, at this time stable and no nausea, vomit or diarrhea. as per General surgery tech he thinks this episode of Nausea and vomit was related to UTI, okay to discharge and signed off the case. Objective Vital Signs Date Time Temp Pulse Resp B/P (MAP) Pulse Ox O2 Delivery O2 Flow Rate FiO2 06/28/17 08:00 98.1 93 24 166/77 (106) 97 06/28/17 08:00 72 06/28/17 07:52 21 06/28/17 07:21 100 Nasal Cannula 2.00 06/28/17 07:00 97 Nasal Cannula 2.00 06/28/17 04:00 98.5 90 18 162/72 (102) 95 06/28/17 04:00 90 06/28/17 03:33 98 Nasal Cannula 2.00 06/28/17 00:00 98.3 92 20 176/81 (112) 96 06/28/17 00:00 92 06/27/17 22:06 98 Nasal Cannula 2.00 06/27/17 20:00 97.9 82 19 156/68 (97) 96 06/27/17 20:00 82 06/27/17 19:00 98 Nasal Cannula 2.00 Humidified 06/27/17 16:00 83 06/27/17 16:00 98.4 83 24 150/66 (94) 95 06/27/17 14:00 84 06/27/17 12:00 109 06/27/17 12:00 98.5 109 19 117/56 (76) 99 I/O 06/27/17 06/27/17 06/27/17 06/28/17 06/28/17 06/28/17 07:00 15:00 23:00 07:00 15:00 23:00 Intake Total 274 ml 200 ml 868 ml 100 ml 100 ml Output Total 900 ml 750 ml Balance -626 ml 200 ml 118 ml 100 ml 100 ml Intake Oral 60 ml 400 ml 100 ml IV Total 214 ml 200 ml 468 ml 100 ml Output Urine Total 900 ml 750 ml # Voids 2 3 # Bowel Movements 0 1 Result Diagram: 06/27/17 0015 06/27/17 1300 Imaging Last Impressions Chest X-Ray 06/24/17 1602 Signed Impressions: Service Date/Time: Saturday, June 24, 2017 16:35 - CONCLUSION: 1. Consolidation and small effusion at the left lung base. 2. Appropriate position of the endotracheal tube. 3. Nasogastric tube courses into the stomach. It deviates to the left in the lower chest. Please see above. Demarcus Thurston MD Upper GI and Small Bowel X-Ray 06/24/17 0000 Signed Impressions: Service Date/Time: Saturday, June 24, 2017 18:41 - CONCLUSION: 1. No evidence of gastric outlet obstruction. 2. No evidence of small bowel obstruction. Tim Rivera MD Procedures Endotracheal Intubation and extubation. Other Results Laboratory Tests Test 06/24/17 16:55 06/26/17 04:28 06/26/17 23:00 06/27/17 00:15 Urine Color YELLOW Urine Turbidity HAZY Urine pH 5.5 Urine Specific [place] 1.029 Urine Protein 30 mg/dL Urine Glucose (UA) NEG mg/dL Urine Ketones NEG mg/dL Urine Occult Blood MOD Urine Nitrite NEG Urine Bilirubin NEG Urine Urobilinogen LESS THAN 2.0 MG/DL Urine Leukocyte Esterase SMALL Urine RBC 136 /hpf Urine WBC 6 /hpf Urine Squamous Epithelial Cells 1 /hpf Urine Amorphous Sediment RARE Urine Bacteria RARE /hpf Urine Mucus FEW /lpf Differential Total Cells Counted 100 Neutrophils % (Manual) 74 % Band Neutrophils % 2 % Lymphocytes % 9 % Monocytes % 10 % Eosinophils % 3 % Neutrophils # (Manual) 5.9 TH/MM3 Promyelocytes 2 % Platelet Estimate NORMAL Platelet Morphology Comment NORMAL Red Cell Morphology Comment NORMAL Nasal Screen MRSA (PCR) MRSA NOT DETECTED White Blood Count 9.6 TH/MM3 Red Blood Count 3.16 MIL/MM3 Hemoglobin 9.3 GM/DL Hematocrit 28.3 % Mean Corpuscular Volume 89.7 FL Mean Corpuscular Hemoglobin 29.4 PG Mean Corpuscular Hemoglobin Concent 32.8 % Red Cell Distribution Width 14.5 % Platelet Count 299 TH/MM3 Mean Platelet Volume 7.6 FL Neutrophils (%) (Auto) 72.9 % Lymphocytes (%) (Auto) 10.2 % Monocytes (%) (Auto) 12.4 % Eosinophils (%) (Auto) 3.2 % Basophils (%) (Auto) 1.3 % Neutrophils # (Auto) 7.0 TH/MM3 Lymphocytes # (Auto) 1.0 TH/MM3 Monocytes # (Auto) 1.2 TH/MM3 Eosinophils # (Auto) 0.3 TH/MM3 Basophils # (Auto) 0.1 TH/MM3 CBC Comment AUTO DIFF Differential Comment AUTO DIFF CONFIRMED Blood Urea Nitrogen 3 MG/DL Creatinine 0.44 MG/DL Random Glucose 92 MG/DL Total Protein 5.2 GM/DL Albumin 2.3 GM/DL Calcium Level 7.9 MG/DL Magnesium Level 1.5 MG/DL Alkaline Phosphatase 63 U/L Aspartate Amino Transf (AST/SGOT) 25 U/L Alanine Aminotransferase (ALT/SGPT) 20 U/L Total Bilirubin 0.6 MG/DL Sodium Level 138 MEQ/L Potassium Level 2.7 MEQ/L Chloride Level 100 MEQ/L Carbon Dioxide Level 27.9 MEQ/L Anion Gap 10 MEQ/L Estimat Glomerular Filtration Rate 140 ML/MIN Test 06/27/17 13:00 Potassium Level 3.7 MEQ/L Magnesium Level 1.6 MG/DL Objective Remarks General: Obesity, No acute distress. ENT: wet mucous membranes. Neck: Supple, no JVD, no lymphadenopathy. Chest/Pulm: on mech vent, good air entry bilaterally, no wheezing or crackles CVS: S1-S2 regular, no murmur GI/abdomen: soft, nontender, bowel sounds sluggish. Ventral hernia noted in epigastric region. No organomegaly appreciated. Extremities: warm bilaterally, no edema Medications and IVs Current Medications Medications (Trade) Dose Ordered Sig/Goran Route Start Time Stop Time Status Last Admin (NS Flush) 2 ml UNSCH PRN IV FLUSH 06/24/17 16:15 (NS Flush) 2 ml BID IV FLUSH 06/24/17 21:00 06/28/17 07:32 (Duoneb Neb) 1 ampule Q6HR NEB NEB 06/24/17 16:15 06/28/17 09:26 (Duoneb Neb) 1 ampule Q4HR NEB PRN INH 06/24/17 16:15 (Protonix Inj) 40 mg Q12HR IV 06/24/17 21:00 06/28/17 07:31 Miscellaneous Information 1 Q361D XX 06/24/17 16:15 (Chlorhexidine 2% Cloth) 3 pack UNSCH PRN TOP 06/24/17 16:15 06/26/17 04:00 (NovoLOG SUPPLEMENTAL SCALE) 1 Q6HR SQ 06/24/17 18:00 Potassium Chloride 100 ml @ 50 mls/hr Q2H PRN IV 06/24/17 16:15 06/27/17 05:06 Potassium Chloride 100 ml @ 50 mls/hr Q2H PRN IV 06/24/17 16:15 (K-Lyte Cl Eff) 50 meq UNSCH PRN PO 06/24/17 16:15 Potassium Chloride 100 ml @ 25 mls/hr UNSCH PRN IV 06/24/17 16:15 06/25/17 06:39 Potassium Chloride 100 ml @ 50 mls/hr Q2H PRN IV 06/24/17 16:15 Magnesium Sulfate 4 gm/Sodium Chloride 100 ml @ 50 mls/hr UNSCH PRN IV 06/24/17 16:15 (Mag-Ox) 800 mg UNSCH PRN PO 06/24/17 16:15 06/27/17 10:21 Magnesium Sulfate 2 gm/Sodium Chloride 100 ml @ 50 mls/hr UNSCH PRN IV 06/24/17 16:15 (K-Phos) 2,000 mg Q4H PRN PO 06/24/17 16:15 Sodium Phosphate 30 mmol/Sodium Chloride 250 ml @ 42 mls/hr UNSCH PRN IV 06/24/17 16:15 (K-Phos) 2,000 mg UNSCH PRN PO/TUBE 06/24/17 16:15 Potassium Phosphate 30 mmol/ Sodium Chloride 260 ml @ 42 mls/hr UNSCH PRN IV 06/24/17 16:15 (Glucagon Inj) 1 mg UNSCH PRN OTHER 06/24/17 16:45 (fentaNYL INJ) 100 mcg Q4HR PRN IV PUSH 06/24/17 17:15 (Trandate Inj) 20 mg Q4H PRN IV PUSH 06/24/17 17:15 06/28/17 01:18 (Lopressor Inj) 2.5 mg Q6H IV PUSH 06/24/17 18:00 06/28/17 11:14 Levofloxacin/ Dextrose 100 ml @ 100 mls/hr Q24H IV 06/25/17 09:00 06/28/17 07:31 (D50w (Syr) Inj) 50 ml UNSCH PRN IV PUSH 06/25/17 17:30 06/25/17 17:31 Dexmedetomidine HCl 1000 mcg/ Sodium Chloride 250 ml @ 3.81 mls/hr Q24H PRN IV 06/26/17 01:30 06/26/17 01:41 (Haldol Inj) 5 mg Q4H PRN IV 06/26/17 08:00 06/27/17 12:49 (Tenormin) 50 mg DAILY PO 06/26/17 10:30 06/28/17 07:32 (Hydrodiuril) 25 mg DAILY PO 06/26/17 10:30 06/28/17 07:32 (Cozaar) 100 mg DAILY PO 06/26/17 10:30 06/28/17 07:32 (Carafate) 1 gm TID PO 06/26/17 13:00 06/28/17 07:32 (Ambien) 5 mg HS PRN PO 06/26/17 10:30 06/27/17 21:03 (Paxil) 30 mg DAILY PO 06/26/17 11:30 06/28/17 07:31 (Catapres) 0.1 mg Q6H PRN PO 06/26/17 15:00 06/28/17 10:28 (NS Flush) 5 ml UNSCH PRN IV FLUSH 06/26/17 21:30 (Heparin Central Flush) 200 units DAILY IV FLUSH 06/27/17 09:00 06/28/17 07:31 (NS Flush) 5 ml UNSCH PRN IV FLUSH 06/26/17 21:30 (Heparin Central Flush) 200 units UNSCH PRN IV FLUSH 06/26/17 21:30 06/26/17 21:56 (NS Flush) 5 ml UNSCH PRN IV FLUSH 06/26/17 21:30 (Zofran Inj) 4 mg Q6HR PRN IV PUSH 06/27/17 01:00 06/27/17 01:02 (Tylenol) 650 mg Q6H PRN PO 06/27/17 16:45 06/28/17 07:11 A/P Assessment and Plan 1. Hematemesis suspected Gastric Outlet obstruction Followed by Critical Care physician until yesterday, was on Sedation with Propofol and Fentanyl, IV Hydration, NG to slow suction, and NPO GI specialist following, images from [facility] no evidence of Gastric Outlet obstruction, NG tube removed yesterday, off Precedex. seen by her Primary General Surgeon, Doctor Nick the patient is tolerating diet, recommended against surgical treatment for Hiatal Hernia continue treatment for UTI, complete outpatient GI workup and consider more elective repair for her HH if needed. removed Tellez catheter transfer to Med Surg. Physical Therapy consult. today stable okay to discharge by General Surgery, no new issues, discussed with relatives they do not feel comfortable with her Mother been discharged at this time, will discharge in am tomorrow. 2. Electrolyte derangement replaced and will follow in am tomorrow. 3. COPD on bronchodilators, was on Mechanical Ventilation, 4. GERD stable continue Gastric protection. 5. Hypertension better control today. 6. UTI on Levaquin for Klebsiella has Tellez cath from outside of the hospital, will remove Tellez cath at this time. 7. Anemia limit lab draws she is Hindu Prophylaxis: On Protonix twice a day which will be continued. SCDs. No heparin or Lovenox in view of presentation with hematemesis till cleared by GI and general surgery. Discussed with patient and nurse Miss Wang and her two daughters in the room, all questions answered to the best of my abilities. Discharge Planning Expected by tomorrow to SNF. King Vazquez MD Jun 28, 2017 11:31
[2017-06-29] VITALS: BP 159/69; PULSE 90; RESP 16; TEMP 98; O2SAT 92
[2017-06-29] MEDS: ZOLPIDEM TARTRATE 5 MG TAB PO PRN (02:03)
[2017-06-29 04:00] VITALS: BP 148/77; PULSE 90; RESP 17; TEMP 97.7; O2SAT 96
[2017-06-29 06:09] LABS: BICARBONATE 32.4 MEQ/L (21.0-32.0); MAGNESIUM 1.8 MG/DL (1.5-2.5); POTASSIUM 3.1 MEQ/L (3.5-5.1)
[2017-06-29 08:00] VITALS: BP 161/78; PULSE 86; RESP 18; TEMP 98.1; O2SAT 96
[2017-06-29] MEDS: LEVOFLOXACIN 500 MG PREMIX INJ 100 ML IV SCH (09:02)
[2017-06-29] MEDS: PICC Daily Heparin 100 unit/mL Lock Flush IV FLUSH SCH (09:08)
[2017-06-29] MEDS: LOSARTAN 50 MG TAB PO SCH (09:08)
[2017-06-29] MEDS: SODIUM CHLORIDE 0.9% FLUSH 10 ML FLUSH IV FLUSH SCH (09:09)
[2017-06-29] MEDS: PARoxetine HCL 20 MG TAB PO SCH (09:09)
[2017-06-29] MEDS: SUCRALFATE 1 GM TAB PO SCH ×2 (09:09→13:04)
[2017-06-29] MEDS: PANTOPRAZOLE SODIUM 40 MG VIAL IV SCH (09:09)
[2017-06-29] MEDS: ATENOLOL 50 MG TAB PO SCH (09:09)
[2017-06-29] MEDS: HYDROCHLOROTHIAZIDE 25 MG TAB PO SCH (09:09)
--- NOTE | 2017-06-29 10:16 | HHI.PR ---
Subjective Remarks order processing specialist Notes: 06/24: 71-year-old female with a past medical history significant for COPD, GERD , gastric ulcer, nephrolithiasis who presented to [facility] on 06/21 with severe epigastric pain nausea vomiting and coffee-ground emesis which started a day prior to her presentation. Patient continued to have significant nausea vomiting following admission. She was evaluated by GI. CT chest was negative for PE. CT abdomen pelvis revealed large hiatal hernia with hyperdense mass in the left kidney measuring 2.5 cm at the mid pole, diverticulosis without evidence of diverticulitis, umbilical hernia, normal- appearing liver spleen and gallbladder. Patient was evaluated by cardiology and GI. She had a 2-D echo which was reported as normal LV systolic function with some diastolic dysfunction. Patient underwent EGD which per discussion with critical care physician at [facility] revealed stomach full of food with gastritis and suspected gastric outlet obstruction. Patient was intubated electively during endoscopy. Since then she has been kept sedated, orally intubated on mechanical ventilation in the ICU. Her UA sent on admission at the outside hospital revealed UTI and she is growing Klebsiella as reported on her urine cultures. She was started on Levaquin for the UTI. Patient reportedly was doing okay on C Pap trials this morning. She was seen by the local surgeon at [facility] however he felt the patient needed to be transferred to [facility] and discussed the case with Dr. Wyatt aleman on 06/23 and patient was subsequently accepted for admission to critical care medicine service for further surgical evaluation following her arrival. I evaluated the patient immediately on arrival to the ICU on 06/24 around 4 PM. At that time she was sedated with propofol, orally intubated on mechanical ventilation. History was obtained by reviewing records and discussion with critical care physician at [facility]. 06/25: Remains sedated, orally intubated on mechanical ventilation. Hospitalist Notes: 06/26: Seen in her bedroom and discussed with nurse Miss Sotelo, no new issues , patient stable the nurse wants to move her to regular floor but continue on Precedex NG tube just removed. 06/27: Followed by General design specialist, as per Doctor Nick the patient is tolerating diet, recommended against surgical treatment for Hiatal Hernia continue treatment for UTI, complete outpatient GI workup and consider more elective repair for her HH if needed. seen in her bedroom, discussed with nurse patient with no complaint, asked for PT, transfer to Medical and surgical floor and remove Tellez cath. 06/28: Seen in Intensive Care Unit in the presence of nurse Miss Wang and her two daughters, they do not feel comfortable with her Mother been discharged at this time will wait one more day I agree will be transferred to general floor and follow from there, at this time stable and no nausea, vomit or diarrhea. as per General oral surgery technician he thinks this episode of Nausea and vomit was related to UTI, okay to discharge and signed off the case. 06/29: Stable in her bedroom discussed with her Daughter Miss Briggs she knows about the placement for her Mother and told me she will go directly to her SNF placement in the afternoon if discharged there during the day. no nausea, vomit or diarrhea, working well with Physical Therapy. Objective Vital Signs Date Time Temp Pulse Resp B/P (MAP) Pulse Ox O2 Delivery O2 Flow Rate FiO2 06/29/17 08:00 98.1 86 18 161/78 (105) 96 06/29/17 04:00 97.7 90 17 148/77 (100) 96 06/29/17 00:00 98.0 90 16 159/69 (99) 92 06/29/17 00:00 95 Nasal Cannula 2.00 06/28/17 21:10 Nasal Cannula 2.00 06/28/17 21:00 Nasal Cannula 2.00 40 06/28/17 20:00 97.1 90 17 174/83 (113) 95 06/28/17 16:27 Nasal Cannula 2.00 06/28/17 16:00 96.9 78 18 140/73 (95) 92 06/28/17 12:00 98.6 82 22 152/69 (96) 97 06/28/17 12:00 82 I/O 06/28/17 06/28/17 06/28/17 06/29/17 06/29/17 06/29/17 06:59 14:59 22:59 06:59 14:59 22:59 Intake Total 100 ml 706 ml 360 ml 120 ml Output Total 75 ml Balance 100 ml 631 ml 360 ml 120 ml Intake Oral 100 ml 500 ml 360 ml 120 ml IV Total 206 ml Output Urine Total 75 ml # Voids 3 4 3 2 # Bowel Movements 1 2 2 Result Diagram: 06/27/17 0015 06/29/17 0530 Imaging Last Impressions Chest X-Ray 06/24/17 1602 Signed Impressions: Service Date/Time: Saturday, June 24, 2017 16:35 - CONCLUSION: 1. Consolidation and small effusion at the left lung base. 2. Appropriate position of the endotracheal tube. 3. Nasogastric tube courses into the stomach. It deviates to the left in the lower chest. Please see above. Demarcus Thurston MD Upper GI and Small Bowel X-Ray 06/24/17 0000 Signed Impressions: Service Date/Time: Saturday, June 24, 2017 18:41 - CONCLUSION: 1. No evidence of gastric outlet obstruction. 2. No evidence of small bowel obstruction. Tim Rivera MD Procedures Endotracheal Intubation and extubation. Other Results Laboratory Tests Test 06/24/17 16:55 06/26/17 04:28 06/26/17 23:00 06/27/17 00:15 Urine Color YELLOW Urine Turbidity HAZY Urine pH 5.5 Urine Specific [place] 1.029 Urine Protein 30 mg/dL Urine Glucose (UA) NEG mg/dL Urine Ketones NEG mg/dL Urine Occult Blood MOD Urine Nitrite NEG Urine Bilirubin NEG Urine Urobilinogen LESS THAN 2.0 MG/DL Urine Leukocyte Esterase SMALL Urine RBC 136 /hpf Urine WBC 6 /hpf Urine Squamous Epithelial Cells 1 /hpf Urine Amorphous Sediment RARE Urine Bacteria RARE /hpf Urine Mucus FEW /lpf Differential Total Cells Counted 100 Neutrophils % (Manual) 74 % Band Neutrophils % 2 % Lymphocytes % 9 % Monocytes % 10 % Eosinophils % 3 % Neutrophils # (Manual) 5.9 TH/MM3 Promyelocytes 2 % Platelet Estimate NORMAL Platelet Morphology Comment NORMAL Red Cell Morphology Comment NORMAL Nasal Screen MRSA (PCR) MRSA NOT DETECTED White Blood Count 9.6 TH/MM3 Red Blood Count 3.16 MIL/MM3 Hemoglobin 9.3 GM/DL Hematocrit 28.3 % Mean Corpuscular Volume 89.7 FL Mean Corpuscular Hemoglobin 29.4 PG Mean Corpuscular Hemoglobin Concent 32.8 % Red Cell Distribution Width 14.5 % Platelet Count 299 TH/MM3 Mean Platelet Volume 7.6 FL Neutrophils (%) (Auto) 72.9 % Lymphocytes (%) (Auto) 10.2 % Monocytes (%) (Auto) 12.4 % Eosinophils (%) (Auto) 3.2 % Basophils (%) (Auto) 1.3 % Neutrophils # (Auto) 7.0 TH/MM3 Lymphocytes # (Auto) 1.0 TH/MM3 Monocytes # (Auto) 1.2 TH/MM3 Eosinophils # (Auto) 0.3 TH/MM3 Basophils # (Auto) 0.1 TH/MM3 CBC Comment AUTO DIFF Differential Comment AUTO DIFF CONFIRMED Blood Urea Nitrogen 3 MG/DL Creatinine 0.44 MG/DL Random Glucose 92 MG/DL Total Protein 5.2 GM/DL Albumin 2.3 GM/DL Calcium Level 7.9 MG/DL Magnesium Level 1.5 MG/DL Alkaline Phosphatase 63 U/L Aspartate Amino Transf (AST/SGOT) 25 U/L Alanine Aminotransferase (ALT/SGPT) 20 U/L Total Bilirubin 0.6 MG/DL Sodium Level 138 MEQ/L Potassium Level 2.7 MEQ/L Chloride Level 100 MEQ/L Carbon Dioxide Level 27.9 MEQ/L Test 06/29/17 05:30 Blood Urea Nitrogen 4 MG/DL Creatinine 0.38 MG/DL Random Glucose 95 MG/DL Calcium Level 8.4 MG/DL Magnesium Level 1.8 MG/DL Sodium Level 135 MEQ/L Potassium Level 3.1 MEQ/L Chloride Level 95 MEQ/L Carbon Dioxide Level 32.4 MEQ/L Anion Gap 8 MEQ/L Estimat Glomerular Filtration Rate 166 ML/MIN Objective Remarks General: Obesity, No acute distress. ENT: wet mucous membranes. Neck: Supple, no JVD, no lymphadenopathy. Chest/Pulm: on mech vent, good air entry bilaterally, no wheezing or crackles CVS: S1-S2 regular, no murmur GI/abdomen: soft, nontender, bowel sounds sluggish. Ventral hernia noted in epigastric region. No organomegaly appreciated. Extremities: warm bilaterally, no edema Medications and IVs Current Medications Medications (Trade) Dose Ordered Sig/Goran Route Start Time Stop Time Status Last Admin (NS Flush) 2 ml BID IV FLUSH 06/24/17 21:00 06/29/17 09:09 (Duoneb Neb) 1 ampule Q4HR NEB PRN INH 06/24/17 16:15 06/28/17 16:24 (Protonix Inj) 40 mg Q12HR IV 06/24/17 21:00 06/29/17 09:09 Miscellaneous Information 1 Q361D XX 06/24/17 16:15 (Chlorhexidine 2% Cloth) 3 pack UNSCH PRN TOP 06/24/17 16:15 06/26/17 04:00 (Mag-Ox) 800 mg UNSCH PRN PO 06/24/17 16:15 06/27/17 10:21 Levofloxacin/ Dextrose 100 ml @ 100 mls/hr Q24H IV 06/25/17 09:00 06/29/17 09:02 (Tenormin) 50 mg DAILY PO 06/26/17 10:30 06/29/17 09:09 (Hydrodiuril) 25 mg DAILY PO 06/26/17 10:30 06/29/17 09:09 (Cozaar) 100 mg DAILY PO 06/26/17 10:30 06/29/17 09:08 (Carafate) 1 gm TID PO 06/26/17 13:00 06/29/17 09:09 (Ambien) 5 mg HS PRN PO 06/26/17 10:30 06/29/17 02:03 (Paxil) 30 mg DAILY PO 06/26/17 11:30 06/29/17 09:09 (Catapres) 0.1 mg Q6H PRN PO 06/26/17 15:00 06/28/17 10:28 (Heparin Central Flush) 200 units DAILY IV FLUSH 06/27/17 09:00 06/29/17 09:08 (Heparin Central Flush) 200 units UNSCH PRN IV FLUSH 06/26/17 21:30 06/26/17 21:56 (Zofran Inj) 4 mg Q6HR PRN IV PUSH 06/27/17 01:00 06/27/17 01:02 (Tylenol) 650 mg Q6H PRN PO 06/27/17 16:45 06/28/17 07:11 A/P Assessment and Plan 1. Hematemesis suspected Gastric Outlet obstruction Followed by Critical Care physician until yesterday, was on Sedation with Propofol and Fentanyl, IV Hydration, NG to slow suction, and NPO GI specialist following, images from [facility] no evidence of Gastric Outlet obstruction, NG tube removed yesterday, off Precedex. seen by her Primary General Surgeon, Doctor Nick the patient is tolerating diet, recommended against surgical treatment for Hiatal Hernia continue treatment for UTI, complete outpatient GI workup and consider more elective repair for her HH if needed. removed Tellez catheter transfer to Med Surg. Physical Therapy consult. today stable okay to discharge by General Surgery, no new issues, discussed with her Daughter Miss Briggs she will go directly to her new Assisted once discharged there. 2. Electrolyte derangement replaced [facility] and follow up by PCP. 3. COPD on bronchodilators, was on Mechanical Ventilation, 4. GERD stable continue Gastric protection. 5. Hypertension better control today. 6. UTI on Levaquin for Klebsiella has Tellez cath from outside of the hospital, will remove Tellez cath at this time. 7. Anemia limit lab draws she is [place] Prophylaxis: On Protonix twice a day which will be continued. SCDs. No heparin or Lovenox in view of presentation with hematemesis Discussed with Patient in the room, with nurse and her Daughter through the phone Miss Briggs, all questions answered to the best of my abilities. Discharge Planning Discharge to SNF. King Vazquez MD Jun 29, 2017 10:16
[2017-06-29] MEDS ORDERED: POTA-163 PO (11:10)
[2017-06-29] MEDS ORDERED: SYMB160A INH (11:10)
[2017-06-29] MEDS ORDERED: OMEP40CA2 PO (11:10)
[2017-06-29] MEDS ORDERED: HYDR-3516 PO (11:10)
[2017-06-29] MEDS ORDERED: LEVA500T20 PO (11:10)
[2017-06-29] MEDS ORDERED: ZOLP5TAB3 PO (11:10)
[2017-06-29] MEDS ORDERED: MAGN400T24 PO (11:10)
--- NOTE | 2017-06-29 11:14 | HHI.DS ---
Discharge Summary Admission Date Jun 24, 2017 at 15:51 Discharge Date: Jun 29, 2017 Admitting Diagnosis (1) COPD (chronic obstructive pulmonary disease) ICD Code: J44.9 - Chronic obstructive pulmonary disease, unspecified Diagnosis: Principal (2) Respiratory failure ICD Code: J96.90 - Respiratory failure, unspecified, unspecified whether with hypoxia or hypercapnia Diagnosis: Principal (3) Hematemesis ICD Code: K92.0 - Hematemesis Diagnosis: Principal Procedures mechanical ventilation Endotracheal extubation Brief History - From Admission 71-year-old female with a past medical history significant for COPD, GERD, gastric ulcer, nephrolithiasis who presented to [facility] on 2016 with severe epigastric pain nausea vomiting and coffee-ground emesis which started a day prior to her presentation. Patient continued to have significant nausea vomiting following admission. She was evaluated by GI. CT chest was negative for PE. CT abdomen pelvis revealed large hiatal hernia with hyperdense mass in the left kidney measuring 2.5 cm at the mid pole, diverticulosis without evidence of diverticulitis, umbilical hernia, normal- appearing liver spleen and gallbladder. Patient was evaluated by cardiology and GI. She had a 2-D echo which was reported as normal LV systolic function with some diastolic dysfunction. Patient underwent EGD which per discussion with critical care physician at [facility] revealed stomach full of food with gastritis and suspected gastric outlet obstruction. Patient was intubated electively during endoscopy. Since then she has been kept sedated, orally intubated on mechanical ventilation in the ICU. Her UA sent on admission at the outside hospital revealed UTI and she is growing Klebsiella as reported on her urine cultures. She was started on Levaquin for the UTI. Patient reportedly was doing okay on C Pap trials this morning. She was seen by the local surgeon at [facility] however he felt the patient needed to be transferred to [facility] and discussed the case with Dr. Wyatt aleman on 06/23 and patient was subsequently accepted for admission to critical care medicine service for further surgical evaluation following her arrival. I evaluated the patient immediately on arrival to the ICU on 06/24 around 4 PM. At that time she was sedated with propofol, orally intubated on mechanical ventilation. History was obtained by reviewing records and discussion with critical care physician at [facility]. CBC/BMP: 06/27/17 0015 06/29/17 0530 Significant Findings Laboratory Tests Test 06/26/17 23:00 06/27/17 00:15 06/27/17 13:00 06/29/17 05:30 Red Blood Count 3.16 MIL/MM3 (4.00-5.30) Hemoglobin 9.3 GM/DL (11.6-15.3) Hematocrit 28.3 % (35.0-46.0) Neutrophils (%) (Auto) 72.9 % (16.0-70.0) Monocytes (%) (Auto) 12.4 % (0.0-8.0) Monocytes # (Auto) 1.2 TH/MM3 (0-0.9) Blood Urea Nitrogen 3 MG/DL (7-18) 4 MG/DL (7-18) Creatinine 0.44 MG/DL (0.50-1.00) 0.38 MG/DL (0.50-1.00) Total Protein 5.2 GM/DL (6.4-8.2) Albumin 2.3 GM/DL (3.4-5.0) Calcium Level 7.9 MG/DL (8.5-10.1) 8.4 MG/DL (8.5-10.1) Potassium Level 2.7 MEQ/L (3.5-5.1) 3.1 MEQ/L (3.5-5.1) Sodium Level 135 MEQ/L (136-145) Chloride Level 95 MEQ/L (98-107) Carbon Dioxide Level 32.4 MEQ/L (21.0-32.0) Imaging Last Impressions Chest X-Ray 06/24/17 1602 Signed Impressions: Service Date/Time: Saturday, June 24, 2017 16:35 - CONCLUSION: 1. Consolidation and small effusion at the left lung base. 2. Appropriate position of the endotracheal tube. 3. Nasogastric tube courses into the stomach. It deviates to the left in the lower chest. Please see above. Demarcus Thurston MD Upper GI and Small Bowel X-Ray 06/24/17 0000 Signed Impressions: Service Date/Time: Saturday, June 24, 2017 18:41 - CONCLUSION: 1. No evidence of gastric outlet obstruction. 2. No evidence of small bowel obstruction. Tim Rivera MD PE at Discharge General: Obesity, No acute distress. ENT: wet mucous membranes. Neck: Supple, no JVD, no lymphadenopathy. Chest/Pulm: on mech vent, good air entry bilaterally, no wheezing or crackles CVS: S1-S2 regular, no murmur GI/abdomen: soft, nontender, bowel sounds sluggish. Ventral hernia noted in epigastric region. No organomegaly appreciated. Extremities: warm bilaterally, no edema Hospital Course tire specialist Notes: 06/24: 71-year-old female with a past medical history significant for COPD, GERD , gastric ulcer, nephrolithiasis who presented to [facility] on 06/21 with severe epigastric pain nausea vomiting and coffee-ground emesis which started a day prior to her presentation. Patient continued to have significant nausea vomiting following admission. She was evaluated by GI. CT chest was negative for PE. CT abdomen pelvis revealed large hiatal hernia with hyperdense mass in the left kidney measuring 2.5 cm at the mid pole, diverticulosis without evidence of diverticulitis, umbilical hernia, normal- appearing liver spleen and gallbladder. Patient was evaluated by cardiology and GI. She had a 2-D echo which was reported as normal LV systolic function with some diastolic dysfunction. Patient underwent EGD which per discussion with critical care physician at [facility] revealed stomach full of food with gastritis and suspected gastric outlet obstruction. Patient was intubated electively during endoscopy. Since then she has been kept sedated, orally intubated on mechanical ventilation in the ICU. Her UA sent on admission at the outside hospital revealed UTI and she is growing Klebsiella as reported on her urine cultures. She was started on Levaquin for the UTI. Patient reportedly was doing okay on C Pap trials this morning. She was seen by the local surgeon at [facility] however he felt the patient needed to be transferred to [facility] and discussed the case with Dr. Wyatt aleman on 06/23 and patient was subsequently accepted for admission to critical care medicine service for further surgical evaluation following her arrival. I evaluated the patient immediately on arrival to the ICU on 06/24 around 4 PM. At that time she was sedated with propofol, orally intubated on mechanical ventilation. History was obtained by reviewing records and discussion with critical care physician at [facility]. 06/25: Remains sedated, orally intubated on mechanical ventilation. Hospitalist Notes: 06/26: Seen in her bedroom and discussed with nurse Miss Sotelo, no new issues , patient stable the nurse wants to move her to regular floor but continue on Precedex NG tube just removed. 06/27: Followed by General carburetor specialist, as per Doctor Nick the patient is tolerating diet, recommended against surgical treatment for Hiatal Hernia continue treatment for UTI, complete outpatient GI workup and consider more elective repair for her HH if needed. seen in her bedroom, discussed with nurse patient with no complaint, asked for PT, transfer to Medical and surgical floor and remove Tellez cath. 06/28: Seen in Intensive Care Unit in the presence of nurse Miss Wang and her two daughters, they do not feel comfortable with her Mother been discharged at this time will wait one more day I agree will be transferred to general floor and follow from there, at this time stable and no nausea, vomit or diarrhea. as per General neurosurgery spine physician he thinks this episode of Nausea and vomit was related to UTI, okay to discharge and signed off the case. 06/29: Stable in her bedroom discussed with her Daughter Miss Briggs she knows about the placement for her Mother and told me she will go directly to her SNF placement in the afternoon if discharged there during the day. no nausea, vomit or diarrhea, working well with Physical Therapy. Assessment and Plan 1. Hematemesis suspected Gastric Outlet obstruction Followed by Critical Care physician until yesterday, was on Sedation with Propofol and Fentanyl, IV Hydration, NG to slow suction, and NPO GI specialist following, images from [facility] no evidence of Gastric Outlet obstruction, NG tube removed yesterday, off Precedex. seen by her Primary General Surgeon, Doctor Nick the patient is tolerating diet, recommended against surgical treatment for Hiatal Hernia continue treatment for UTI, complete outpatient GI workup and consider more elective repair for her HH if needed. removed Tellez catheter transfer to Med Surg. Physical Therapy consult. today stable okay to discharge by General Surgery, no new issues, discussed with her Daughter Miss Briggs she will go directly to her new [facility] once discharged there. 2. Electrolyte derangement replaced will continue Magnesium sulfate and Potassium at detention and follow up by PCP. 3. COPD on bronchodilators, was on Mechanical Ventilation, 4. GERD stable continue Gastric protection. 5. Hypertension better control today. 6. UTI on Levaquin for Klebsiella has Tellez cath from outside of the hospital, will remove Tellez cath at this time. 7. Anemia limit lab draws she is [employer] 8. VDRF Improved. Prophylaxis: On Protonix twice a day which will be continued. SCDs. No heparin or Lovenox in view of presentation with hematemesis Discussed with Patient in the room, with nurse and her Daughter through the phone Miss Briggs, all questions answered to the best of my abilities. Discharge Planning Discharge to SNF. Pt Condition on Discharge: Good Discharge Disposition: Discharge to SNF Discharge Time: > 30 minutes Discharge Instructions DIET: Follow Instructions for: Heart Healthy Diet Activities you can perform: See Additionl Instruction Other Activity Instructions: Follow PT recommendations in SNF King Vazquez MD Jun 29, 2017 11:14
[2017-06-29 12:00] VITALS: BP 142/75; PULSE 96; RESP 18; TEMP 98.6; O2SAT 94
[2017-06-29] MEDS ORDERED: POTASSIUM CHLORIDE 20 MEQ CONTROLLED RELEASE TAB PO ONE ×2 (13:00→14:00)
[2017-06-29] MEDS: MAGNESIUM SULFATE 1 GM PREMIX 100 ML IV SCH ×2 (13:05→14:05)
[2017-06-29 13:30] VITALS: O2SAT 95
== END 2017-06-29 18:35 | DRG 391 ==
LOC: N03A 15:51 → N06A 06-28 15:00
PROVIDERS: ADMIT Internal Medicine; ATTEND Internal Medicine
PROC: 5A1935Z Respiratory Ventilation, Less than 24 Consecutive Hours (ICD-10-PCS; principal; 2017-06-24)
DX: K44.9 Diaphragmatic hernia without obstruction or gangrene (principal); J96.90 Respiratory failure, unspecified, unspecified whether with hypoxia or hypercapnia; K92.0 Hematemesis; N39.0 Urinary tract infection, site not specified; B96.1 Klebsiella pneumoniae [K. pneumoniae] as the cause of diseases classified elsewhere; J44.9 Chronic obstructive pulmonary disease, unspecified; E66.01 Morbid (severe) obesity due to excess calories; Z68.30 Body mass index [BMI] 30.0-30.9, adult; K21.9 Gastro-esophageal reflux disease without esophagitis; I10 Essential (primary) hypertension; N28.89 Other specified disorders of kidney and ureter; D50.0 Iron deficiency anemia secondary to blood loss (chronic); Z53.1 Procedure and treatment not carried out because of patient's decision for reasons of belief and group pressure; E78.5 Hyperlipidemia, unspecified; F32.9 Major depressive disorder, single episode, unspecified; Z87.11 Personal history of peptic ulcer disease; Z92.21 Personal history of antineoplastic chemotherapy; Z85.048 Personal history of other malignant neoplasm of rectum, rectosigmoid junction, and anus; Z92.3 Personal history of irradiation
CPT/HCPCS: 71010; 74245; 80048; 80053; 81001; 82948; 83735; 84132; 85007; 85025; 85027; 87641; 93005; 94002; 94003; 94640; 94664; C9113; J1630; J1642; J1940; J1956; J2250; J2270; J2405; J3475; J3480; J7030; J7050